=== PATIENT | male | born 1940 | race Caucasian/White ===

== ENCOUNTER 2022-03-23 09:52 | Day surgery (SDC) | payer MEDICARE, BC, SELFPAY ==
[2022-03-23] VITALS (33 sets, daily range): BP systolic 108–186; BP diastolic 26–131; PULSE 46–98; RESP 14–18; TEMP 35.5–36.7; O2SAT 94–98; BMI 71.4
[2022-03-23] MEDS: OXYCODONE (CR) 10 MG TAB.ER.12H PO (10:23)
[2022-03-23] MEDS: ACETAMINOPHEN 500 MG TABLET 1000 MG PO ×2 (10:23→18:32)
[2022-03-23] MEDS: MIDAZOLAM HCL 1 MG/ML inj IVP (10:23)
[2022-03-23] MEDS: fentaNYL 100 MCG/2 ML inj IVP (10:23)
[2022-03-23] MEDS: CELECOXIB 200 MG CAPSULE PO ×2 (10:23→20:31)
[2022-03-23] MEDS: LACTATED RINGERS 1000 ML 1,000 ML 100 ML IV (10:30)
--- NOTE | 2022-03-23 11:48 | CRLHL7_ITS ---
For Patients: As a result of the Cures Act, medical imaging exams and procedure reports are released immediately into your electronic medical record. You may view this report before your referring provider. If you have questions, please contact your health care provider. Indication: POST OP TKA Technique: Two views right knee Findings/Impression: Hardware from a right total knee arthroplasty is in satisfactory position. Bone alignment is normal. No sign of acute fracture. Postop changes are within normal limits. Dictated by Kurt Harmon MD @ 03/24/2022 8:31:04 AM (Electronically Signed)
--- NOTE | 2022-03-23 12:32 | P.NB_ITS ---
Nerve Block Nerve Block Time Seen by Provider: 12:32 Date Seen: 03/23/22 Type of block requested by surgeon for post-operative analgesia: geniculars Side: right Time out performed: Yes Verification of patient name: Yes Verification of date of : Yes Site marking: site marked Name of person performing procedure: Juancarlos Continuous monitoring Was continuous monitoring of O2 sat, B/P, phototypesetting equipment monitor, recorded every 15 minutes?: Yes Procedure Checklist: sterile prep, needles and gloves Medications given in 5ml increments after negative aspiration: Marcaine %: 0.5 mL: 10 Needle gauge: 25 Patient tolerated procedure well: Yes Block Charges Block Charge (with Pro Fee): Genicular Nerve Block Use of Ultrasound Machine for Block: No
--- NOTE | 2022-03-23 12:32 | W.PM.NB ---
Nerve Block Nerve Block Time Seen by Provider: 12:32 Date Seen: 03/23/22 Type of block requested by surgeon for post-operative analgesia: adductor canal Side: right Time out performed: Yes Verification of patient name: Yes Verification of date of : Yes Site marking: site marked Name of person performing procedure: Juancarlos Continuous monitoring Was continuous monitoring of O2 sat, B/P, monitoring and evaluation advisor, recorded every 15 minutes?: Yes Procedure Checklist: sterile prep, needles and gloves Ultrasound guided. Images saved: Yes Medications given in 5ml increments after negative aspiration: Marcaine %: 0.5 mL: 20 Needle gauge: 20 Decadron (mg): 10 Precedex (mcg): 25 Patient tolerated procedure well: Yes Additional comments: Needle noted adjacent to nerve Block Charges Block Charge (with Pro Fee): Femoral Nerve Use of Ultrasound Machine for Block: Yes- US Guidance/pain block
--- NOTE | 2022-03-23 12:36 | SUR.PREOP ---
TIME?OUT:?1220 PT/RN/MDA?VERIFICATION?OF?SURGICAL?SITE,?PROCEDURE,?AND?CONSENT OBTAINED?PRIOR?TO?INVASIVE?PROCEDURE. right knee
[2022-03-23] MEDS: CEFAZOLIN 2 GM INJ IVP (14:00)
--- NOTE | 2022-03-23 14:14 | W.ANESCHARGE ---
Anesthesia Charges Start Date/Time Anesthesia Start Date: 03/23/22 Anesthesia Start Time: 13:47 Stop Date/Time Anesthesia Stop Date: 03/23/22 Anesthesia Stop Time: 16:13 Summary Emergency: No Extremes of Age: Over 72-CPT 95212
--- NOTE | 2022-03-23 15:30 | PM.ORPRC ---
Procedure Note Date of procedure: 03/23/22 Procedure: PREOPERATIVE DIAGNOSIS: 1. Right knee osteoarthritis, primary, severe POSTOPERATIVE DIAGNOSIS: 1. Right knee osteoarthritis, primary, severe PROCEDURE: 1. Right total knee arthroplasty SURGEON: Robert Lin MD. FITTER'S ASSISTANT: Rob MORALES - Of note, a skilled assistant associate professor was critical for this case to aid in patient positioning, tissue retraction, limb manipulation/positioning, and closure. ANESTHESIA: Spinal anesthetic IMPLANTS: DePuy J&J all cemented TKA - Attune PS femur size 7, size 7 tibia, 5 poly spacer, 41mm patella TOURNIQUET: 5 minutes at 300 torr EBL: 200 mL COMPLICATIONS: None evident INDICATIONS: The patient is a pleasant 81-year-old male who has experienced severe right knee pain and difficulty bearing weight. Workup included x-rays which revealed severe osteoarthrosis in the knee. Given the deformity, the dysfunction, and the pain, as well as the failure of nonoperative management, recommendation was made for surgery. FINDINGS: Full-thickness chondral loss with grooving into the medial femoral condyle and medial tibia. Tricompartmental osteophytes. Loose bodies posteriorly as well. DESCRIPTION OF PROCEDURE: Following a thorough discussion of risks, benefits, and alternatives consent was obtained and the right knee was marked. The patient was brought to the operating room and placed supine on the operating table. Induction of anesthesia was undertaken. 2 g IV Ancef and 1 g tranexamic acid was administered within 1 hr of incision preoperatively. Proper time-out was performed identifying proper patient, site, procedure. The operative extremity was prepped and draped in the appropriate sterile fashion using ChloraPrep after the patient was positioned supine with all bony prominences well padded. A longitudinal, anterior, midline skin incision was made starting approximately 3cm proximal to the superior pole of the patella and advanced distal to the tibial tubercle. A median parapatellar arthrotomy was created. A medial subperiosteal sleeve was created with knife, castañeda elevator and curved osteotome. The retropatellar fatpad was resected and the synovium in the suprapatellar pouch excised to visualize the anterior femoral cortex. Femoral preparation was performed via an intramedullary guide. Step drill allowed access into the femoral canal. The distal cutting guide was placed with 5? of valgus and 10 mm cut on the distal femur. Femur was sized using a anterior referencing guide in 3? of external rotation. This found have a best fit with the sizing noted above. The 4 in 1 cutting block was then placed, and the distal femur shaped accordingly. The box cut was then created and the trial implant inserted to confirm appropriate fit. We turned our attention to the proximal tibia. Extramedullary guide was utilized for cutting with the goal of being 90 degree cut from the mechanical axis of the tibia in the varus/valgus plane utilizing tibial crest as the primary alignment. Initially a 2 mm resection was performed from the medial tibial plateau. Ultimately, balancing was achieved in both flexion and extension in both varus and valgus. The knee was able to achieve full extension as well comfortably. The patella was initially measured and found have a thickness of 26 mm. It was resected back to approximately 16 mm. It was sized to be a best fit with as noted above. This was drilled, trial placed. All trials were placed and found to have an excellent stability and balance. At this stage, trial implants were removed, the knee was thoroughly irrigated with normal saline, and the cement was mixed. After irrigation, the knee was thoroughly dried, and cement placed, with the real tibial and femoral implants placed along with the patella. Trial poly spacer was placed and confirmed to have excellent range of motion and full extension, and the real poly spacer opened and inserted. All extra cement was removed, and a 3 min Betadine soak performed. Finally, a final irrigation round with normal saline was performed. Closure performed with 0 Vicryl and #0 Stratafix for the quad tendon/retinaculum. 2-0 Vicryl for the subcutaneous and 4-0 Stratafix for subcuticular closure. Dressings were applied and the patient was awoken from anesthesia and transferred the PACU in stable condition. Of note, the tourniquet was deflated after 5 minutes as it was a venous tourniquet. We did the rest the procedure without tourniquet including thorough irrigation of the bone marrow and drying of the bone prior to cementing. A skilled assistant associate professor was critical for this case to aid in patient positioning, tissue retraction, bone exposure, limb manipulation/positioning, patient safety, and closure. PLAN: 1. Weight bear as tolerated operative extremity. 2. 23 hr perioperative antibiotics. 3. Ice. 4. PT/OT consults for ambulation assistance/mobility education. 5. Social work consult for discharge planning. 6. DVT prophylaxis with at SCDs, Jose R Hose, and aspirin twice daily.
--- NOTE | 2022-03-23 16:16 | W.ANESCHARGE ---
Anesthesia Charges Start Date/Time Anesthesia Start Date: 03/23/22 Anesthesia Start Time: 13:47 Stop Date/Time Anesthesia Stop Date: 03/23/22 Anesthesia Stop Time: 16:13 Summary Emergency: No Extremes of Age: Over 72-CPT 07491
[2022-03-23] MEDS: LACTATED RINGERS 1000 ML 1,000 ML 75 ML IV (16:54)
--- NOTE | 2022-03-23 17:25 | PM.IMCN1 ---
Date of Consult Consult date: 03/23/22 Requesting Physician: Orthopedics Primary Care Provider: Christopher Sandoval MD Consult Narrative Reason for consult: Hypertension, asthma, seasonal allergies Narrative: Martinez Arango is a 81 year old male who underwent elective right total knee arthroplasty by Dr. Allred today. He is doing well postoperatively. He notes the block is still working and he just has some tingling in that leg. He has no other complaints. Review of Systems Const: Denies: fever, chills, change in weight or night sweats Eyes: Reports: other (cataracts); Denies: change in vision ENMT: Denies: neck pain Cardio: Denies: chest pain, edema or shortness of breath with exertion Resp: Denies: shortness of breath or cough GI: Reports: other (Has normal BMs daily, had one this am); Denies: abdominal pain, nausea, vomiting or diarrhea : Denies: painful urination, urinary frequency or nighttime urination Musculo: Denies: back pain or neck pain Integ/Breast: Denies: rash Neuro: Denies: headache Endo: Denies: excessive urination PFSH PFSH Medical History (Updated 03/23/22 @ 17:30 by Michelle Heart MD) Arthritis Asthma due to environmental allergies Benign paroxysmal positional vertigo Encounter for counseling regarding advance directives (03/19/16) Hyperlipidemia Seasonal allergic rhinitis due to pollen Surgical History (Updated 03/23/22 @ 17:30 by Michelle Heart MD) 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 Mother No problems noted. Sister High blood pressure Brother Coronary artery disease Brother Stroke Other Heart attack Social History (Updated 03/23/22 @ 17:37 by Michelle Heart MD) Narrative: Full code, doesn't want long-term life support. Smoking Status: Never smoker Do you use any of these nicotine containing products: None Second hand tobacco smoke exposure: No How often do you have a drink containing alcohol: 2-4 times a month Alcohol type: beer, wine and hard liquor How many standard drinks containing alcohol do you have on a typical day: 1 or 2 How often do you have six or more drinks on one occasion: Never AUDIT-C Alcohol total score: 2 Non-prescribed substance use: denies use Caffeine: Yes (COFFEE 2 CUPS DAILY) Are you now , , , , never or living with a partner: Social isolation score (0-1 are the most socially isolated patients): 1 Meds Home Medications and Allergies Home Medications Medication Instructions Recorded Confirmed Type fluticasone propionate 50 2 spray intranasal DAILY PRN 03/02/22 03/23/22 History mcg/actuation nasal spray,suspension glucosamine 750 [id number] 1 tab PO BID 03/02/22 03/23/22 History no1 644 mg-C 30 mg-odalys 1 mg tablet (Osteo Bi-Flex Triple Strength) multivitamin 1 tab PO QDAY 03/02/22 03/23/22 History latanoprost 0.005 % eye drops 1 drp ophthalmic (eye) HS 03/03/22 03/23/22 History losartan 100 mg tablet 100 mg PO QDAY 03/03/22 03/23/22 History vit A 300 mcg-C 200 mg-E 27 1 tab PO QDAY 03/03/22 03/23/22 History mg-lutein 2 mg and minerals tablet (Ocuvite with Lutein) rosuvastatin 20 mg tablet (Crestor) 20 mg PO DAILY 03/20/22 03/23/22 History sildenafil 50 mg tablet 50 mg PO DAILY PRN 03/20/22 03/20/22 History Allergies Allergy/AdvReac Type Severity Reaction Status Date / Time Penicillin Allergy Intermediate Hives Uncoded 03/23/22 17:40 seasonal Allergy Unknown Uncoded 03/23/22 17:40 Exam Narrative: Exam Narrative: General: No acute distress. Awake alert oriented x3. Very hard of hearing, left hearing aids at home. HEENT: Normocephalic atraumatic, pupils equally round and reactive to light and accommodation. Oropharynx clear. Mucous membranes are moist. No cervical lymphadenopathy, thyromegaly or carotid bruits. No JVD. Cardiovascular: Regular rate and rhythm. No murmurs, gallops, or rubs. Chest: No increased work of breathing. Clear to auscultation bilaterally. No crackles or wheezes. Abdomen: Bowel sounds present. Soft, nondistended, nontender. No hepatosplenomegaly or masses. Extremities: Right knee bandages are clean, dry, and intact. Cooling pad is on right knee. Jose R's toes on bilaterally. No edema, no cyanosis or clubbing. Skin: No jaundice, no pallor, no rashes. Const: Vital Signs, click to edit/add: Vital Signs - 24 hr 03/23/22 10:30 03/23/22 10:59 03/23/22 12:37 Temperature 98.0 F Pulse Rate 80 64 47 L Respiratory Rate 18 18 18 Blood Pressure 186/93 H 156/87 H 154/72 H Pulse Oximetry 96 96 98 Oxygen Delivery Me thod Oxygen Flow Rate 03/23/22 12:39 03/23/22 12:45 03/23/22 12:50 Temperature Pulse Rate 47 L 46 L 46 L Respiratory Rate 18 18 18 Blood Pressure 117/73 115/60 117/64 Pulse Oximetry 97 97 97 Oxygen Delivery Me thod Oxygen Flow Rate 03/23/22 12:55 03/23/22 13:00 03/23/22 13:05 Temperature Pulse Rate 46 L 46 L 48 L Respiratory Rate 18 18 18 Blood Pressure 116/66 110/66 116/66 Pulse Oximetry 98 98 98 Oxygen Delivery Me thod Oxygen Flow Rate 03/23/22 13:10 03/23/22 13:15 03/23/22 13:27 Temperature Pulse Rate 48 L 47 L 50 L Respiratory Rate 18 18 18 Blood Pressure 119/69 118/68 119/72 Pulse Oximetry 98 98 98 Oxygen Delivery Me thod Oxygen Flow Rate 03/23/22 13:30 03/23/22 16:10 03/23/22 16:15 Temperature 96.7 F L Pulse Rate 50 L 56 L 56 L Respiratory Rate 18 14 16 Blood Pressure 121/73 118/79 108/83 Pulse Oximetry 98 98 Oxygen Delivery Me thod Nasal Cannula Nasal Cannula Oxygen Flow Rate 3 3 03/23/22 16:20 03/23/22 16:25 03/23/22 16:30 Temperature Pulse Rate 58 L 61 60 Respiratory Rate 16 16 16 Blood Pressure 134/84 135/78 135/76 Pulse Oximetry 97 95 95 Oxygen Delivery Me thod Nasal Cannula Room Air Room Air Oxygen Flow Rate 3 03/23/22 16:36 Temperature 96.4 F L Pulse Rate 62 Respiratory Rate 16 Blood Pressure 141/80 H Pulse Oximetry 95 Oxygen Delivery Me thod Room Air Oxygen Flow Rate Documenting provider has reviewed patient's vital signs: yes (Intraoperative bradycardia noted) Assessment and Plan Assessment and plan (1) Status post total right knee replacement: Status: Acute Assessment and Plan: Cares per ortho. Pain well controlled. VTE prophylaxis with twice a day aspirin for 6 weeks, TEDS and SCDS in the hospital. (2) Hypertension: Status: Acute Assessment and Plan: Hold losartan since BPs tend to be low day 1 s/p TKAs.
--- NOTE | 2022-03-23 19:46 | PC.NURSE ---
shift [id number] pt arrived to unit at 1645 post right TKA. Cooperative and cheerful. O2 95% on RA, tolerating ice chips and advanced to soft food for dinner. Right knee shows no redness, no edema, and dressing clean dry and intact. Able to wiggle toes and lift legs. Denies chest pain. pain 2/10, see eMAR.
[2022-03-23] MEDS: CEFAZOLIN 2 GM in 0.9 % SODIUM CHLORIDE Mini-bag 100 ML IVPB (20:21)
[2022-03-23] MEDS: SENNOSIDES 1 TAB TABLET 2 TAB PO (20:31)
[2022-03-23] MEDS: ASPIRIN 81 MG TABLET EC PO (20:31)
[2022-03-23] MEDS: OXYCODONE 5 MG TABLET PO (21:57)
--- NOTE | 2022-03-23 22:26 | PC.NURSE ---
Shift Note 19-23: Pt pleasant and cooperative, BP elevated post-op as well as bradycardia. Pt has sensation in his right leg and foot, pain has been controlled with scheduled Tylenol, Celebrex and Oxycodone. See eMAR for medication administration. PIV is patent and asymptomatic with LR running. Pt has been up to BR with the urge to void but was unable to void, will continue to monitor. Cryocuff is in place, dressing is CDI. Pt is tolerating a regular diet, denies nausea
[2022-03-24] MEDS: ACETAMINOPHEN 500 MG TABLET 1000 MG PO ×2 (01:46→08:50)
[2022-03-24 03:44] VITALS: BP 135/78; PULSE 50; RESP 18; TEMP 36.7; O2SAT 96
[2022-03-24] MEDS: CEFAZOLIN 2 GM in 0.9 % SODIUM CHLORIDE Mini-bag 100 ML IVPB ×2 (03:52→11:14)
[2022-03-24] MEDS: LACTATED RINGERS 1000 ML 1,000 ML 75 ML IV (03:52)
[2022-03-24 03:55] VITALS: TEMP 36.3
--- NOTE | 2022-03-24 06:07 | PC.NURSE ---
End of shift. pt has been pleasant. right knee pain 1 -2 in bed and 4 when up. he did not want pain meds pain meds where offered. HR is bradycardia, pt said that is normal for him. has a family history of heart problems. he is drinking and voiding/ offered food last night and he declined. rachel Tylenol was given. bladder scan was 391 at the start of the shift and he voided 600 since then. right knee dressing is C/D/I/ cryo cuff is on ice was change @ 0530. teds off and plexi are off. IV is patent. he is a fall risk and bed and chair alarms are on. he is using the call light. he moves very good with a walker GB and sba
[2022-03-24 07:00] VITALS: BP 159/72; PULSE 58; RESP 18; TEMP 36.6; O2SAT 95
[2022-03-24 07:14] LABS: Basophils Percent Auto 0.1 % (0.0-3.0); Hematocrit 37.7 % (37.0-53.0); Hemoglobin* 12.8 gm/dL (13.5-17.5); Immature Granulocytes Abs Auto 0.02 K/uL (0.00-0.30); Lymphocytes Percent Auto 4.9 % (20-44); Mean Corpuscular HGB Conc 34 gm/dL (32-36); Mean Corpuscular Hemoglobin 31 pg (26-34); Mean Corpuscular Volume 92 fL (80-100); Monocytes Percent Auto 8.3 % (0.0-11.0); Neutrophils Percent Auto 86.6 % (42.0-72.0); Platelet Count* 236 K/uL (140-440); RDW Coefficient of Variation % 12.7 % (11.5-15.5); Red Blood Count 4.11 m/uL (4.30-5.90); White Blood Count* 15.58 K/uL (4.50-11.00)
[2022-03-24 07:28] LABS: Potassium* 4.5 mmol/L (3.6-5.1); Sodium* 136 mmol/L (135-149)
[2022-03-24 07:31] LABS: Creatinine* 1.1 mg/dL (0.5-1.5); Est. Creatinine Clearance* 52.68; Estimated Glomerular Filt Rate 68 ml/min
[2022-03-24 07:32] LABS: Blood Urea Nitrogen* 22 mg/dL (7-30)
[2022-03-24 08:19] LABS: Slide Review Reflex No
[2022-03-24] MEDS: ROSUVASTATIN CALCIUM 10 MG TABLET 20 MG PO (08:50)
[2022-03-24] MEDS: ASPIRIN 81 MG TABLET EC PO (08:50)
[2022-03-24] MEDS: MULTIVITAMIN/MINERALS 1 TABLET 1 TAB PO (08:50)
[2022-03-24] MEDS: CELECOXIB 200 MG CAPSULE PO (08:53)
[2022-03-24 11:00] VITALS: BP 126/65; PULSE 61; RESP 20; TEMP 36.6; O2SAT 95
--- NOTE | 2022-03-24 11:09 | PM.DS1 ---
DS: Providers Provider Date Seen: 03/24/22 Primary care physician: Christopher Sandoval MD Consults: 03/23/22 16:37 Consult to Occupational Therapy [CONS] Routine Comment: Reason(s) for OT Consult:: ADLs Prior to Discharge Any Restrictions?:: See Comment Comment: See nursing activity order for any restrictions. Consult to Physical Therapy [CONS] Routine Comment: Ambulate in the [place]ina today. Reason(s) for PT Consult:: TKA TX Protocol POD#0 Any Restrictions?:: See Comment Comment: See nursing activity order for any restrictions. Consult to Physician [CONS] Routine Comment: Consulting Provider: Hospitalists Has provider been notified: No Consult to Manager Group [CONS] Routine Comment: Reason for Consult:: Discharge Planning Needs Attending Physician on discharge: Robert Lin MD Date of Discharge: 03/24/22 DS: Diagnosis Discharge Diagnosis (1) Status post total right knee replacement: Status: Acute (2) Hypertension: Status: Acute (3) Osteoarthritis of right knee: Status: Acute Problem details: Right knee osteoarthrosis, severe DS: Summary Hospital Course Hospital Course: 81-year-old male admitted to the hospital for right total knee arthroplasty. Procedures performed on the day of admission by Dr. Lin. There were no complications. Postoperatively he has done quite well. Minimal pain. Ambulating well. No other concerns today. Status at Discharge Functional status at discharge: uses cane/walker Overall status at discharge: patient is back to baseline Time Spent with Patient Time attestation: Total time spent providing and/or coordinating discharge services: Time spent: Less than 30 minutes Exam Narrative: Exam Narrative: He is alert and appears in no distress. Breathing is unlabored. Mood and affect are bright. Lower extremities without edema. Incision without erythema or drainage. Intact pulses and strength in feet and ankles. Const: Vital Signs, click to edit/add: Vital Signs - 24 hr 03/23/22 12:37 03/23/22 12:39 03/23/22 12:45 Temperature Pulse Rate 47 L 47 L 46 L Pulse Rate [Pulse Oximeter] Respiratory Rate 18 18 18 Blood Pressure 154/72 H 117/73 115/60 Blood Pressure [Le ft Arm] Pulse Oximetry 98 97 97 Oxygen Delivery Me thod Oxygen Flow Rate 03/23/22 12:50 03/23/22 12:55 03/23/22 13:00 Temperature Pulse Rate 46 L 46 L 46 L Pulse Rate [Pulse Oximeter] Respiratory Rate 18 18 18 Blood Pressure 117/64 116/66 110/66 Blood Pressure [Le ft Arm] Pulse Oximetry 97 98 98 Oxygen Delivery Me thod Oxygen Flow Rate 03/23/22 13:05 03/23/22 13:10 03/23/22 13:15 Temperature Pulse Rate 48 L 48 L 47 L Pulse Rate [Pulse Oximeter] Respiratory Rate 18 18 18 Blood Pressure 116/66 119/69 118/68 Blood Pressure [Le ft Arm] Pulse Oximetry 98 98 98 Oxygen Delivery Me thod Oxygen Flow Rate 03/23/22 13:27 03/23/22 13:30 03/23/22 16:10 Temperature 96.7 F L Pulse Rate 50 L 50 L 56 L Pulse Rate [Pulse Oximeter] Respiratory Rate 18 18 14 Blood Pressure 119/72 121/73 118/79 Blood Pressure [Le ft Arm] Pulse Oximetry 98 98 Oxygen Delivery Me thod Nasal Cannula Oxygen Flow Rate 3 03/23/22 16:15 03/23/22 16:20 03/23/22 16:25 Temperature Pulse Rate 56 L 58 L 61 Pulse Rate [Pulse Oximeter] Respiratory Rate 16 16 16 Blood Pressure 108/83 134/84 135/78 Blood Pressure [Le ft Arm] Pulse Oximetry 98 97 95 Oxygen Delivery Me thod Nasal Cannula Nasal Cannula Room Air Oxygen Flow Rate 3 3 03/23/22 16:30 03/23/22 16:36 03/23/22 17:21 Temperature 96.4 F L Pulse Rate 60 62 Pulse Rate [Pulse Oximeter] Respiratory Rate 16 16 16 Blood Pressure 135/76 141/80 H Blood Pressure [Le ft Arm] Pulse Oximetry 95 95 95 Oxygen Delivery Me thod Room Air Room Air Room Air Oxygen Flow Rate 03/23/22 16:45 03/23/22 17:00 03/23/22 17:15 Temperature 97 F L 96.9 F L 96.9 F L Pulse Rate 61 Pulse Rate [Pulse Oximeter] 49 L 98 Respiratory Rate 16 16 16 Blood Pressure Blood Pressure [Le ft Arm] 148/84 H 142/26 H 121/80 Pulse Oximetry 96 97 Oxygen Delivery Me thod Room Air Room Air Room Air Oxygen Flow Rate 03/23/22 17:30 03/23/22 17:45 03/23/22 18:00 Temperature 96.9 F L 96 F L Pulse Rate Pulse Rate [Pulse Oximeter] 97 62 49 L Respiratory Rate 16 16 16 Blood Pressure Blood Pressure [Le ft Arm] 140/98 H 153/131 H 159/83 H Pulse Oximetry 97 96 96 Oxygen Delivery Me thod Room Air Room Air Room Air Oxygen Flow Rate 0 03/23/22 18:30 03/23/22 19:00 03/23/22 20:00 Temperature 96.9 F L 97.6 F Pulse Rate Pulse Rate [Pulse Oximeter] 54 L 46 L 57 L Respiratory Rate 16 16 16 Blood Pressure Blood Pressure [Le ft Arm] 153/84 H 158/81 H 155/69 H Pulse Oximetry 96 95 94 Oxygen Delivery Me thod Room Air Room Air Room Air Oxygen Flow Rate 0 0 03/23/22 21:00 03/23/22 22:00 03/23/22 23:30 Temperature 97.6 F Pulse Rate Pulse Rate [Pulse Oximeter] 59 L 60 55 L Respiratory Rate 16 16 16 Blood Pressure Blood Pressure [Le ft Arm] 146/79 H 163/77 H 156/81 H Pulse Oximetry 96 98 96 Oxygen Delivery Me thod Room Air Room Air Room Air Oxygen Flow Rate 0 0 0 03/23/22 23:35 03/24/22 03:44 03/24/22 03:55 Temperature 98.1 F 97.4 F L Pulse Rate Pulse Rate [Pulse Oximeter] 55 L 50 L Respiratory Rate 18 18 Blood Pressure Blood Pressure [Le ft Arm] 135/78 Pulse Oximetry 96 Oxygen Delivery Me thod Room Air Oxygen Flow Rate 0 03/24/22 07:00 Temperature 97.8 F Pulse Rate Pulse Rate [Pulse Oximeter] 58 L Respiratory Rate 18 Blood Pressure Blood Pressure [Le ft Arm] 159/72 H Pulse Oximetry 95 Oxygen Delivery Me thod Room Air Oxygen Flow Rate Documenting provider has reviewed patient's vital signs: yes DS: Data Data Completed and Pending Labs on day of discharge: Labs from last 24 hours 03/24/22 03/24/22 06:30 06:30 WBC 15.58 H RBC 4.11 L Hgb 12.8 L Hct 37.7 MCV 92 MCH 31 MCHC 34 RDW Coeff of Susan 12.7 Plt Count 236 Neut % (Auto) 86.6 H Lymph % (Auto) 4.9 L [place] % (Auto) 8.3 Eos % (Auto) 0.0 Baso % (Auto) 0.1 Neut # (Auto) 13.50 H Lymph # (Auto) 0.80 L [place] # (Auto) 1.30 H Eos # (Auto) 0.00 Baso # (Auto) 0.00 Abs Immat Gran (auto) 0.02 Sodium 136 Potassium 4.5 BUN 22 Creatinine 1.1 Estimated Creat Clear 52.68 Estimated GFR 68 Discharge Plan Discharge Disposition: Home, Self-Care Discharging Surgeon: Robert Lin Follow-Up Appointment: Follow-up with Dr. Lin and Orthopedic Clinic as scheduled Prescriptions: New acetaminophen 500 mg capsule 500 - 1,000 mg PO Q6H MDD 4000mg PRNQty: 100 0RF celecoxib 200 mg capsule 200 mg PO BID Qty: 60 0RF oxycodone 5 mg tablet 2.5 - 5 mg PO Q4-6H MDD 6 PRN (Reason: pain) Qty: 42 0RF Rx Instructions: Take as needed for postop pain: 2.5mg mild pain, 5mg moderate-severe pain; wean as tolerated. sennosides-docusate sodium [Senna-S] 8.6-50 mg tablet 1 - 4 tab-cap PO BID PRN (Reason: constipation) Qty: 60 0RF Rx Instructions: Hold medication if experiencing loose stools. aspirin 81 mg tablet,delayed release (DR/EC) 81 mg PO BID Qty: 60 0RF Rx Instructions: Medication to help prevent blood clots postoperatively; take TWICE daily. Continued fluticasone propionate 50 mcg/actuation spray,suspension 2 spray intranasal DAILY PRN multivitamin Tablet 1 tab PO QDAY Osteo Bi-Flex Triple Strength 750 mg-644 mg- 30 mg-1 mg tablet 1 tab PO BID losartan 100 mg tablet 100 mg PO QDAY latanoprost 0.005 % drops 1 drp ophthalmic (eye) HS Label Comments: INSTILL 1 DROP IN BOTH EYES EVERY NIGHT AT BEDTIME Ocuvite with Lutein 300 mcg-200 mg-27 mg-2 mg tablet 1 tab PO QDAY Rx Instructions: administer after a meal rosuvastatin [Crestor] 20 mg tablet 20 mg PO DAILY sildenafil 50 mg tablet 50 mg PO DAILY PRN Rx Instructions: administer 30 minutes to 4 hours before activity Activity Level: Activity as Tolerated, Weight Bearing as Tolerated, Use Cane and Use Walker Activity Detail: Wound: ?Do not remove original dressing; we will remove this at first postop visit in 1 week. Only remove dressing if integrity is in question. ?No immersing wound in water; showering okay; light scrub with your hand and body soap, rinse, dab dry ?Sutures are under the skin, will dissolve; allow surgical glue to come off naturally; do not scrub the wound or apply ointments/lotions ?Call our office with any redness that streaks, excessive drainage from the wound, or wound gapping. Ice/Elevate: ?Ice as needed for swelling and discomfort (cryocuff or ice pack); elevate frequently above the heart PRICILA socks: ?Wear for 1 month, remove for 1 hour 3 times per day ?These are frustrating to take on/off, but are important for blood clot prevention for 1 month after surgery Blood Clot Prevention (DVT): ?Medication: 81 mg aspirin by mouth twice daily Driving: ?Do not drive while taking narcotic pain medication ?Anticipate 4-6 weeks no driving if operative leg is driving leg Dental: ?No elective dental work for 6 months post-op. If there is an urgent/emergent dental need, contact our office for an antibiotic prescription. Smoking/Alcohol: ?Do not smoke; do no drink alcohol especially when taking postoperative oral narcotic medication Seek Care from you Primary Care Provider if you experience the following issues in the postoperative phase and beyond: ?Bacterial infections such as: pneumonia, bacterial skin infection (cellulitis), UTI, high fever, chills unrelated to the operative body part - call your primary care physician urgently for treatment in hopes to protect your health and the metal implant. Referrals: ?PT, OT per patient preference - evaluate treat total right knee arthroplasty protocol (the training, ROM, ADLs, knee-high Pricila socks) Follow up: ?Ortho surgeon follow-up in 6 weeks; repeat radiographs three views right knee ?PA-C visit in 1 week *If there are any acute concerns regarding your surgery, please call our orthopedic clinic ([phone]) Discharge Diet: Regular Patient Instructions: Surgical Site Infections (DC) Forms: Work/Release Restrictions Follow-up: Christopher Sandoval MD [Primary Care Provider] - Discharge Orders: Discharge Order (Routine); Ordered 03/24/22 Ordered By: Thee Segovia
[2022-03-24] MEDS: SENNOSIDES 1 TAB TABLET 2 TAB PO (11:34)
--- NOTE | 2022-03-24 13:56 | PC.NURSE ---
Patient evaluated by Thee NOVAK, Dr. Toure, PT, OT and myself this morning. No dysphagia with scheduled medications. Pt 0 out of 10 with scheduled tylenol and celebrex. Pt, spouse Adri and son Noel verbalized understanding of d/c diagnosis, home meds, new prescriptions, pain management plan, f/up appt. and symptoms to report urgently to physician. Teaching on sx of infection and wound care completed. Discharged via w/c to own home with son & @ [phone].
--- NOTE | 2022-03-24 19:35 | PM.ORPN ---
Subjective Subjective Date Seen: 03/24/22 Principal diagnosis: Status postop day 1, right total knee arthroplasty Interval history: Patient reports doing well. No acute events over night. Initially some issues with voiding, but this self corrected. No catheter needed. Pain managed with scheduled /PRN medications and ice. DVT prophylaxis 81 mg aspirin by mouth twice daily, bilateral knee high Jose R stockings, and SCDs.. Denies fevers, chills, aches, N/V, CP, SOB/RAUSCH, tachycardia, or lightheadedness. He feels quite well without much for pain medication. Ortho Exam Narrative Exam Narrative: -Patient appears comfortable in recliner; no apparent acute distress -Alert and oriented times 3 -Operative knee swollen; soft tissues supple; no obvious erythema. Ecchymosis minimal. Warmth appropriate -Surgical dressing clean, dry, intact; no obvious drainage, no erythematous streaking peripheral to the bandage -bilateral calves soft, nontender; no significant swelling, edema, tenderness, erythema, discoloration, warmth, or palpable cords -2+ DP/PT pulses, intact dermatomes and myotomes distally (5/5 strength) Const Vital Signs, click to edit/add: Vital Signs - 24 hr 03/23/22 20:00 03/23/22 21:00 03/23/22 22:00 Temperature Pulse Rate [Pulse Oximeter] 57 L 59 L 60 Respiratory Rate 16 16 16 Blood Pressure [Left Arm] 155/69 H 146/79 H 163/77 H Pulse Oximetry 94 96 98 Oxygen Delivery Method Room Air Room Air Room Air Oxygen Flow Rate 0 0 0 03/23/22 23:30 03/23/22 23:35 03/24/22 03:44 Temperature 97.6 F 98.1 F Pulse Rate [Pulse Oximeter] 55 L 55 L 50 L Respiratory Rate 16 18 18 Blood Pressure [Left Arm] 156/81 H 135/78 Pulse Oximetry 96 96 Oxygen Delivery Method Room Air Room Air Oxygen Flow Rate 0 0 03/24/22 03:55 03/24/22 07:00 03/24/22 11:00 Temperature 97.4 F L 97.8 F 98 F Pulse Rate [Pulse Oximeter] 58 L 61 Respiratory Rate 18 20 Blood Pressure [Left Arm] 159/72 H 126/65 Pulse Oximetry 95 95 Oxygen Delivery Method Room Air Room Air Oxygen Flow Rate Assessment and Plan Assessment and plan (1) Status post total right knee replacement: Problem details: Pod 1 right total knee arthroplasty Status: Acute (2) Hypertension: Status: Acute (3) Osteoarthritis of right knee: Problem details: Right knee osteoarthrosis, severe Status: Acute Plan - Complete 23 hour perioperative antibiotics. - PT/OT consult for education and assistance. - Social work consult for discharge planning - Prescribed analgesics as needed - DVT prophylaxis: 81 mg aspirin by mouth twice daily, bilateral knee high Jose R Hose stockings and SCDs - Anticipation is for discharge to home with family 03/24/2022 if the patient remains medically stable, pain is controlled, and they are safe with mobilization.
--- NOTE | 2022-03-24 19:37 | PM.DS1 ---
DS: Providers Provider Date Seen: 03/24/22 Date of admission: Med surg recovery Primary care physician: Christopher Sandoval MD Consults: 03/23/22 16:37 Consult to Occupational Therapy [CONS] Routine Comment: Reason(s) for OT Consult:: ADLs Prior to Discharge Any Restrictions?:: See Comment Comment: See nursing activity order for any restrictions. Consult to Physical Therapy [CONS] Routine Comment: Ambulate in the [place] today. Reason(s) for PT Consult:: TKA [place] Protocol POD#0 Any Restrictions?:: See Comment Comment: See nursing activity order for any restrictions. Consult to Physician [CONS] Routine Comment: Consulting Provider: Hospitalists Has provider been notified: No Consult to Sales[employer] [CONS] Routine Comment: Reason for Consult:: Discharge Planning Needs Attending Physician on discharge: Robert Lin MD Date of Discharge: 03/24/22 DS: Diagnosis Discharge Diagnosis (1) Status post total right knee replacement: Status: Acute Problem details: Pod 1 right total knee arthroplasty DS: Summary Hospital Course Hospital Course: 81-year-old male admitted to the hospital for right total knee arthroplasty. Procedures performed on the day of admission by Dr. Lin. There were no complications. Postoperatively he has done quite well. Minimal pain. Ambulating well. No other concerns today. The patient has a history of right knee osteoarthritis, primary, severe. After appropriate preoperative evaluation, the patient underwent right total knee arthroplasty. Postoperatively, the patient was given anticoagulation for deep vein thrombosis prophylaxis. The patient was progressed to Physical Therapy and was felt ready for discharge. Status at Discharge Functional status at discharge: uses cane/walker Overall status at discharge: patient is progressing back to baseline Time Spent with Patient Time attestation: Total time spent providing and/or coordinating discharge services: Time spent: Less than 30 minutes Exam Const: Vital Signs, click to edit/add: Vital Signs - 24 hr 03/23/22 20:00 03/23/22 21:00 03/23/22 22:00 Temperature Pulse Rate [Pulse Oximeter] 57 L 59 L 60 Respiratory Rate 16 16 16 Blood Pressure [Le ft Arm] 155/69 H 146/79 H 163/77 H Pulse Oximetry 94 96 98 Oxygen Delivery Me thod Room Air Room Air Room Air Oxygen Flow Rate 0 0 0 03/23/22 23:30 03/23/22 23:35 03/24/22 03:44 Temperature 97.6 F 98.1 F Pulse Rate [Pulse Oximeter] 55 L 55 L 50 L Respiratory Rate 16 18 18 Blood Pressure [Le ft Arm] 156/81 H 135/78 Pulse Oximetry 96 96 Oxygen Delivery Me thod Room Air Room Air Oxygen Flow Rate 0 0 03/24/22 03:55 03/24/22 07:00 03/24/22 11:00 Temperature 97.4 F L 97.8 F 98 F Pulse Rate [Pulse Oximeter] 58 L 61 Respiratory Rate 18 20 Blood Pressure [Le ft Arm] 159/72 H 126/65 Pulse Oximetry 95 95 Oxygen Delivery Me thod Room Air Room Air Oxygen Flow Rate DS: Data Data Completed and Pending Labs on day of discharge: Labs from last 24 hours 03/24/22 03/24/22 06:30 06:30 WBC 15.58 H RBC 4.11 L Hgb 12.8 L Hct 37.7 MCV 92 MCH 31 MCHC 34 RDW Coeff of Susan 12.7 Plt Count 236 Neut % (Auto) 86.6 H Lymph % (Auto) 4.9 L [place] % (Auto) 8.3 Eos % (Auto) 0.0 Baso % (Auto) 0.1 Neut # (Auto) 13.50 H Lymph # (Auto) 0.80 L [place] # (Auto) 1.30 H Eos # (Auto) 0.00 Baso # (Auto) 0.00 Abs Immat Gran (auto) 0.02 Sodium 136 Potassium 4.5 BUN 22 Creatinine 1.1 Estimated Creat Clear 52.68 Estimated GFR 68 Discharge Plan Discharge Disposition: Home, Self-Care Discharging Surgeon: Robert Lin Follow-Up Appointment: Follow-up with Dr. Lin and Orthopedic Clinic as scheduled Prescriptions: New acetaminophen 500 mg capsule 500 - 1,000 mg PO Q6H MDD 4000mg PRNQty: 100 0RF celecoxib 200 mg capsule 200 mg PO BID Qty: 60 0RF oxycodone 5 mg tablet 2.5 - 5 mg PO Q4-6H MDD 6 PRN (Reason: pain) Qty: 42 0RF Rx Instructions: Take as needed for postop pain: 2.5mg mild pain, 5mg moderate-severe pain; wean as tolerated. sennosides-docusate sodium [Senna-S] 8.6-50 mg tablet 1 - 4 tab-cap PO BID PRN (Reason: constipation) Qty: 60 0RF Rx Instructions: Hold medication if experiencing loose stools. aspirin 81 mg tablet,delayed release (DR/EC) 81 mg PO BID Qty: 60 0RF Rx Instructions: Medication to help prevent blood clots postoperatively; take TWICE daily. Continued fluticasone propionate 50 mcg/actuation spray,suspension 2 spray intranasal DAILY PRN multivitamin Tablet 1 tab PO QDAY Osteo Bi-Flex Triple Strength 750 mg-644 mg- 30 mg-1 mg tablet 1 tab PO BID losartan 100 mg tablet 100 mg PO QDAY latanoprost 0.005 % drops 1 drp ophthalmic (eye) HS Label Comments: INSTILL 1 DROP IN BOTH EYES EVERY NIGHT AT BEDTIME Ocuvite with Lutein 300 mcg-200 mg-27 mg-2 mg tablet 1 tab PO QDAY Rx Instructions: administer after a meal rosuvastatin [Crestor] 20 mg tablet 20 mg PO DAILY sildenafil 50 mg tablet 50 mg PO DAILY PRN Rx Instructions: administer 30 minutes to 4 hours before activity Activity Level: Activity as Tolerated, Weight Bearing as Tolerated, Use Cane and Use Walker Activity Detail: Wound: ?Do not remove original dressing; we will remove this at first postop visit in 1 week. Only remove dressing if integrity is in question. ?No immersing wound in water; showering okay; light scrub with your hand and body soap, rinse, dab dry ?Sutures are under the skin, will dissolve; allow surgical glue to come off naturally; do not scrub the wound or apply ointments/lotions ?Call our office with any redness that streaks, excessive drainage from the wound, or wound gapping. Ice/Elevate: ?Ice as needed for swelling and discomfort (cryocuff or ice pack); elevate frequently above the heart PRICILA socks: ?Wear for 1 month, remove for 1 hour 3 times per day ?These are frustrating to take on/off, but are important for blood clot prevention for 1 month after surgery Blood Clot Prevention (DVT): ?Medication: 81 mg aspirin by mouth twice daily Driving: ?Do not drive while taking narcotic pain medication ?Anticipate 4-6 weeks no driving if operative leg is driving leg Dental: ?No elective dental work for 6 months post-op. If there is an urgent/emergent dental need, contact our office for an antibiotic prescription. Smoking/Alcohol: ?Do not smoke; do no drink alcohol especially when taking postoperative oral narcotic medication Seek Care from you Primary Care Provider if you experience the following issues in the postoperative phase and beyond: ?Bacterial infections such as: pneumonia, bacterial skin infection (cellulitis), UTI, high fever, chills unrelated to the operative body part - call your primary care physician urgently for treatment in hopes to protect your health and the metal implant. Referrals: ?PT, OT per patient preference - evaluate treat total right knee arthroplasty protocol (the training, ROM, ADLs, knee-high Pricila socks) Follow up: ?Ortho surgeon follow-up in 6 weeks; repeat radiographs three views right knee ?PA-C visit in 1 week *If there are any acute concerns regarding your surgery, please call our orthopedic clinic ([phone]) Discharge Diet: Regular Patient Instructions: Acetaminophen (By mouth) (Acetaminophen Children's, Acetaminophen..., Aspirin (By mouth) (Sudeep Extra Strength, Sudeep Aspirin Children's,..., Oxycodone, Rapid Release (By mouth) (ETH-Oxydose, Oxy IR,..., Celecoxib (By mouth) (Selebreks, eliksib), Senna (By mouth) (Sen, Senna-lax), Surgical Site Infections (DC), Knee Replacement (DC) Forms: Work/Release Restrictions Follow-up: Thee Segovia PA-C [Physician Injection Molding Operator] - 04/02/22 9:30 am (Schedule surgeon appointment at this visit.) Christopher Sandoval MD [Primary Care Provider] - (Patient is to call and schedule as needed.) Discharge Orders: Discharge Order (Routine); Ordered 03/24/22 Ordered By: Thee Segovia
== END 2022-03-24 12:35 | disposition home or self-care (01) ==
LOC: OR 09:53 → MEDSURG 19:57
PROVIDERS: PCP Family Medicine; Visit Provider Orthopaedic Surgery Sports Medicine
PROC: (CPT 27447; principal; 2022-03-23 12:00)
DX: M17.11 Unilateral primary osteoarthritis, right knee (principal); I10 Essential (primary) hypertension; J45.909 Unspecified asthma, uncomplicated
CPT/HCPCS: 27447; 01402; 36415; 51702; 51798; 64447; 64454; 73560; 76942; 82565; 84132; 84295; 84520; 85025; 97110; 97116; 97161; 97165; 99100; A9153; A9270; C1776; J0690; J1100; J2250; J2704; J3010; J3490; J7120

== ENCOUNTER 2022-04-14 23:33 | Day surgery (SDC) | payer MEDICARE, BC, SELFPAY ==
[2022-04-14 22:27] VITALS: BP 144/79; PULSE 63; RESP 18; TEMP 36.3; O2SAT 97; BMI 31.5
--- NOTE | 2022-04-14 23:06 | ED_ITS ---
HPI - General Adult General Time Seen by Provider: 23:06 Date Seen: 04/14/22 Chief complaint: Fall/Minor Trauma Stated complaint: Fall, R knee laceration Time Seen by Provider: 04/14/22 22:44 Source: patient and family Mode of arrival: ambulatory Limitations: no limitations History of Present Illness HPI narrative: 81-year-old male who comes in today with right knee injury after fall. Patient had a total knee replacement done a couple of weeks ago. Tonight tripped and fell landing on the knee. Denies any other injury. He notes that he has been able ambulate without difficulty after his fall but opened his wound and so came to the emergency department. He says he tripped, did not become lightheaded or dizzy did not pass out. Related Data Home Medications Medication Instructions Recorded Confirmed fluticasone propionate 50 2 spray intranasal DAILY PRN 03/02/22 04/14/22 mcg/actuation nasal spray,suspension glucosamine 750 [id number] 1 tab PO BID 03/02/22 04/14/22 no1 644 mg-C 30 mg-odalys 1 mg tablet (Osteo Bi-Flex Triple Strength) multivitamin 1 tab PO QDAY 03/02/22 04/14/22 latanoprost 0.005 % eye drops 1 drp ophthalmic (eye) HS 03/03/22 04/14/22 losartan 100 mg tablet 100 mg PO QDAY 03/03/22 04/14/22 vit A 300 mcg-C 200 mg-E 27 1 tab PO QDAY 03/03/22 04/14/22 mg-lutein 2 mg and minerals tablet (Ocuvite with Lutein) Previous Rx's Medication Instructions Recorded acetaminophen 500 mg capsule 500 - 1,000 mg PO Q6H PRN #100 caps 03/23/22 aspirin 81 mg tablet,delayed 81 mg PO BID #60 tabs 03/23/22 release celecoxib 200 mg capsule 200 mg PO BID #60 caps 03/23/22 oxycodone 5 mg tablet 2.5 - 5 mg PO Q4-6H PRN pain #42 03/23/22 tabs T.e.d. stockings thigh length #1 ea 04/02/22 Allergies Allergy/AdvReac Type Severity Reaction Status Date / Time Penicillin Allergy Intermediate Hives Uncoded 04/09/22 12:35 seasonal Allergy Unknown Uncoded 04/09/22 12:35 Review of Systems Status of ROS: Reports: 10 or more systems reviewed and unremarkable except as noted in History and below [facility] Medical History Arthritis Asthma due to environmental allergies Benign paroxysmal positional vertigo Encounter for counseling regarding advance directives (03/19/16) Hyperlipidemia Seasonal allergic rhinitis due to pollen Surgical History 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 Mother No problems noted. Sister High blood pressure Brother Coronary artery disease Brother Stroke Other Heart attack Social History Narrative: Full code, doesn't want long-term life support. Smoking Status: Never smoker Do you use any of these nicotine containing products: None Second hand tobacco smoke exposure: No How often do you have a drink containing alcohol: 2-4 times a month Alcohol type: beer, wine and hard liquor How many standard drinks containing alcohol do you have on a typical day: 1 or 2 How often do you have six or more drinks on one occasion: Never AUDIT-C Alcohol total score: 2 Non-prescribed substance use: denies use Caffeine: Yes (COFFEE 2 CUPS DAILY) Are you now , , , , never or living with a partner: Social isolation score (0-1 are the most socially isolated patients): 1 Exam Narrative: Exam Narrative: General: Well-developed and well-nourished, no acute distress Head: Atraumatic and normocephalic Eyes: Pupils are equal reactive, extraocular motions intact, conjunctiva clear ENT: External nose and ears are normal, posterior pharynx without erythema or exudate Neck: No midline cervical tenderness, full spontaneous range of motion the neck, trachea midline, no adenopathy Heart: Regular rate and rhythm no murmurs or thrills Lungs: Clear to auscultation bilaterally without wheezes or crackles Abdomen: Soft, nontender, nondistended with active bowel sounds Musculoskeletal: Right knee incision has been completely dehisced its entire length. No active bleeding. Neurologic: Awake, alert, and oriented x3, no gross focal neurologic deficits, cranial nerves intact as tested Psych: Mood and affect are appropriate Skin: No rashes Const: Vital Signs, click to edit/add: Vital Signs - 24 hr 04/14/22 22:27 Temperature 97.4 F L Pulse Rate [Left P ulse Oximeter] 63 Respiratory Rate 18 Blood Pressure [Ri ght Upper Arm] 144/79 H Pulse Oximetry 97 Oxygen Delivery Me thod Room Air Course Course Hospital Course: Patient seen and examined, prior records reviewed. Patient tripped and fell on his right knee, causing disease his since of the surgical wound. Plan to rep air, will discuss with Orthopedic surgery. X-rays are ordered although patient says the knee feels fine and he has been ambulatory since his injury. Reevaluation(s) Reevaluation #1: Care discussed with jameson Mcclellan. Recommends cleaning and dressing the wound, plan to go to the OR for washout and repair in the morning. Rocephin IV will be given here. Care was discussed with Dr. Will, hospitalist for admission. Time: 23:16 Vital Signs Vital signs: Initial Vital Signs Temperature 97.4 F L 04/14/22 22:27 Temperature Source Temporal Artery Scan 04/14/22 22:27 Pulse Rate 63 04/14/22 22:27 Respiratory Rate 18 04/14/22 22:27 Blood Pressure 144/79 H 04/14/22 22:27 Blood Pressure Mean 100 04/14/22 22:27 Blood Pressure Position Sitting 04/14/22 22:27 Pulse Oximetry 97 04/14/22 22:27 Oxygen Delivery Method 04/14/22 22:27 Vital Signs Temperature 97.4 F L 04/14/22 22:27 Pulse Rate 63 04/14/22 22:27 Respiratory Rate 18 04/14/22 22:27 Blood Pressure 144/79 H 04/14/22 22:27 Pulse Oximetry 97 04/14/22 22:27 Oxygen Delivery Method 04/14/22 22:27 Temperature 97.4 F L 04/14/22 22:27 Pulse Rate 63 04/14/22 22:27 Respiratory Rate 18 04/14/22 22:27 Blood Pressure 144/79 H 04/14/22 22:27 Pulse Oximetry 97 08/30/22 22:27 Oxygen Delivery Method 04/14/22 22:27 Medical Decision Making Medical Records Medical records reviewed: Yes I reviewed the patient's medical records Lab Data Lab results reviewed: Yes I reviewed the patient's lab results Discharge Plan Discharge Clinical Impression: Status post total right knee replacement, Postoperative wound dehiscence Patient Disposition: Admitted As Inpatient
--- NOTE | 2022-04-14 23:08 | CRLHL7_ITS ---
For Patients: As a result of the Cures Act, medical imaging exams and procedure reports are released immediately into your electronic medical record. You may view this report before your referring provider. If you have questions, please contact your health care provider. Indication: Fall. Recent total knee arthroplasty. Technique: Right knee 3 views. Comparison: March 23, 2022. Findings: Bones: Alignment is normal. No fractures or bone lesions. Joint spaces: Hardware from a total knee arthroplasty is in satisfactory position without evidence of loosening. Small joint effusion present. Soft tissues: Braymer view demonstrates a superficial laceration anterior to the patella. There is generalized soft tissue swelling. Dictated by Augustus Lynn MD @ 04/14/2022 11:59:58 PM (Electronically Signed)
--- NOTE | 2022-04-14 23:37 | W.PC.EDHO ---
Primary Language: Preferred Language: Orientation Status: [x] Alert & Oriented [] Slight Confusion [] Known Dx Dementia Transfers By: [x] Assist of 1 [] Assist of 2 [] Lift Description of Symptoms ED Triage Present Problem knee replacement on here. tonight tripped Description going up steps, landed on landing. thought landed on L knee, presents with split incision. head hit mesh baby gate. thought maybe landed on L shoulder as well. is on blood thinner post op ED Triage Date of Onset of 04/14/22 Symptoms Oxygen Administration Pulse Oximetry 97 Oxygen Delivery Method Room Air
--- NOTE | 2022-04-14 23:54 | PM.IMHP1 ---
Hospitalist- H&P: HPI History of Present Illness Date Seen: 04/14/22 Chief complaint: Fall, R knee laceration Narrative: ADMISSION HISTORY AND PHYSICAL - HOSPITALIST Chief Complaint: I fell going up stairs HPI: This is a 81-year-old who had a primary right knee arthroplasty approximately [address] Klein. He had an unremarkable postop course until tonight. He was going up stairs and caught his toe coming down directly on his operative knee. He split his incision wide open. He has been on aspirin b.i.d. for DVT prophylaxis. His called the neighbor and they brought him in for evaluation. No other injury. He did not hit his head. No loss of consciousness. He had not been drinking alcohol. In the ED his wound was cleaned and dressed. Hospitalist was contacted to admit for surgery tomorrow. 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 Father? No problems noted. Mother? No problems noted. Sister High blood pressureBrother Coronary artery diseaseBrother StrokeOther Heart attack Social History?(Updated 03/23/22 @ 17:37 by Michelle Heart MD) Narrative:? Full code, doesn't want long-term life support. Smoking Status:? Never smoker Do you use any of these nicotine containing products:? None Second hand tobacco smoke exposure:? No How often do you have a drink containing alcohol:? 2-4 times a month Alcohol type: beer, wine and hard liquor How many standard drinks containing alcohol do you have on a typical day:? 1 or 2 How often do you have six or more drinks on one occasion:? Never AUDIT-C Alcohol total score:? 2 Non-prescribed substance use:? denies use Caffeine:? Yes (COFFEE 2 CUPS DAILY) Are you now , , , , never or living with a partner:? Social isolation score (0-1 are the most socially isolated patients):? 1 Meds Home Medications and Allergies Home Medications ?Medication ?Instructions ?Recorded ?Confirmed ?Type fluticasone propionate 50 2 spray intranasal DAILY PRN 03/02/22 03/23/22 History mcg/actuation nasal ? spray,suspension ? glucosamine 750 [id number]-[id number] 1 tab PO BID 03/02/22 03/23/22 History no1 644 mg-C 30 mg-odalys 1 mg ? tablet (Osteo Bi-Flex Triple ? Strength) ? multivitamin 1 tab PO QDAY 03/02/22 03/23/22 History latanoprost 0.005 % eye drops 1 drp ophthalmic (eye) HS 03/03/22 03/23/22 History losartan 100 mg tablet 100 mg PO QDAY 03/03/22 03/23/22 History vit A 300 mcg-C 200 mg-E 27 1 tab PO QDAY 03/03/22 03/23/22 History mg-lutein 2 mg and minerals tablet ? (Ocuvite with Lutein) ? rosuvastatin 20 mg tablet (Crestor) 20 mg PO DAILY 03/20/22 03/23/22 History sildenafil 50 mg tablet 50 mg PO DAILY PRN 03/20/22 03/20/22 History Allergies Allergy/AdvReac Type Severity Reaction Status Date / Time Penicillin Allergy Intermediate Hives Uncoded 03/23/22 17:40 seasonal Allergy Unknown ? Uncoded 03/23/22 17:40 INVESTIGATIONS: LABS/MICRO/ECG/IMAGING 144/79 Pulse 63 Resp is 18 Afebrile O2 sat 97% on room air CBC reflects a white blood cell count of 15.5, hemoglobin 12.8, normal platelets 236 Normal BMP Right knee x-ray Hardware from a right total knee arthroplasty is in satisfactory position. Bone alignment is normal. No sign of acute fracture. Postop changes are within normal limits. REVIEW OF SYSTEMS: 12-point ROS completed with patient and negative unless otherwise stated in HPI or below. PHYSICAL EXAM: CODE STATUS: Full code CONSTITUTIONAL: No acute distress. Hard of hearing. VITAL SIGNS: see record. HEENT: Normocephalic, atraumatic. PERRL, EOMI, conjunctivae pink, no scleral icterus. Ears and nose externally normal. Pharynx normal. NECK: No JVD. No carotid bruit, no thyromegaly, no adenopathy. CHEST: Clear to auscultation bilaterally HEART: S1 and S2 normal. No harsh murmurs. Edema MUSCULOSKELETAL: Right knee has a deep dehisced surgical wound extending entire length previous surgery. The wound was not explored but apparently a an arthrotomy is suspected. NEURO: Cranial nerves intact. Grossly intact. No asymmetric findings. SKIN: No rashes, petechiae, concerning changes PSYCHIATRIC: Euthymic. ADMIT DVT: Previously been on aspirin b.i.d.. 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 Mother No problems noted. Sister High blood pressure Brother Coronary artery disease Brother Stroke Other Heart attack Social History Narrative: Full code, doesn't want long-term life support. Smoking Status: Never smoker Do you use any of these nicotine containing products: None Second hand tobacco smoke exposure: No How often do you have a drink containing alcohol: 2-4 times a month Alcohol type: beer, wine and hard liquor How many standard drinks containing alcohol do you have on a typical day: 1 or 2 How often do you have six or more drinks on one occasion: Never AUDIT-C Alcohol total score: 2 Non-prescribed substance use: denies use Caffeine: Yes (COFFEE 2 CUPS DAILY) Are you now , , , , never or living with a partner: Social isolation score (0-1 are the most socially isolated patients): 1 Meds Home Medications and Allergies Home Medications Medication Instructions Recorded Confirmed Type fluticasone propionate 50 2 spray intranasal DAILY PRN 03/02/22 04/14/22 History mcg/actuation nasal spray,suspension glucosamine 750 [id number]-alyhhzoqdzs-ygw 1 tab PO BID 03/02/22 04/14/22 History no1 644 mg-C 30 mg-odalys 1 mg tablet (Osteo Bi-Flex Triple Strength) multivitamin 1 tab PO QDAY 03/02/22 04/14/22 History latanoprost 0.005 % eye drops 1 drp ophthalmic (eye) HS 03/03/22 04/14/22 History losartan 100 mg tablet 100 mg PO QDAY 03/03/22 04/14/22 History vit A 300 mcg-C 200 mg-E 27 1 tab PO QDAY 03/03/22 04/14/22 History mg-lutein 2 mg and minerals tablet (Ocuvite with Lutein) Allergies Allergy/AdvReac Type Severity Reaction Status Date / Time Penicillin Allergy Intermediate Hives Uncoded 04/09/22 12:35 seasonal Allergy Unknown Uncoded 04/09/22 12:35 Exam Const: Vital Signs, click to edit/add: Vital Signs - 24 hr 04/14/22 22:27 Temperature 97.4 F L Pulse Rate [Left P ulse Oximeter] 63 Respiratory Rate 18 Blood Pressure [Ri ght Upper Arm] 144/79 H Pulse Oximetry 97 Oxygen Delivery Me thod Room Air Assessment and Plan Assessment and plan (1) Postoperative wound dehiscence: Status: Acute Assessment and Plan: I will make him NPO after midnight. I expect ortho will likely taken to the OR tomorrow to washout and reapproximate. We gave him 1 g of Rocephin in the ED. LR S he will be NPO. (2) Status post total right knee replacement: Problem comment: (03/23/2022) Status: Acute (3) Hypertension: Status: Acute Assessment and Plan: Continue home meds.
[2022-04-14] MEDS: cefTRIAXone 1 GM in 0.9 % SODIUM CHLORIDE Mini-bag 100 ML IVPB (23:56)
[2022-04-15] VITALS (17 sets, daily range): BP systolic 133–191; BP diastolic 73–98; PULSE 46–60; RESP 16–18; TEMP 36.3–36.9; O2SAT 90–99; BMI 30.6
--- NOTE | 2022-04-15 00:55 | ED.NURSE ---
pt knee lac cleaned, non stick bandage applied and 6 inch ken wrap applied per MD order.
[2022-04-15 00:58] LABS: SARS PCR* Negative SARS-CoV-2 (Negative)
[2022-04-15] MEDS: 0.9 % SODIUM CHLORIDE 1000 ml 1,000 ML 125 ML IV (02:15)
[2022-04-15] MEDS: BUPIVACAINE 0.5% 30 ML INJECTION (14:15)
--- NOTE | 2022-04-15 14:29 | SUR.OPER ---
Patient transported from [facility] Surg by bed to OR2. Patient was assisted to the OR table. Covered with warm blankets x2 for warmth and comfort.
--- NOTE | 2022-04-15 14:31 | PM.ORPRC ---
Procedure Note Date of procedure: 04/15/22 Procedure: PREOPERATIVE DIAGNOSIS: 1. Right knee wound traumatic dehiscence following TKA 03/23/2022 POSTOPERATIVE DIAGNOSIS: 1. Right knee wound traumatic dehiscence following TKA 03/23/2022 PROCEDURE: 1. Right knee irrigation and debridement including excisional debridement of subcutaneous tissue. 2. Right knee skin closure (including subcutaneous layer and subcuticular layer) 14 cm in length SURGEON: Robert Lin MD. EDUCATION SUPERVISOR: Thee Segovia PA-C - Of note, a skilled dental laboratory assistant was critical for this case to aid in patient positioning, tissue retraction, limb manipulation/positioning, and closure. ANESTHESIA: Mac IMPLANTS: None today TOURNIQUET: None today EBL: 50 ml COMPLICATIONS: None evident INDICATIONS: The patient is a pleasant 81-year-old male who underwent a right TKA on 03/23/2022. He was doing very good in the postoperative time. He was advancing with physical therapy. He was ambulating independently without assistive device most recently. He has been off of narcotics. Unfortunately, he tripped going up his stairs yesterday, 04/14/2022. This causing the land on the anterior aspects of each knee onto a hardwood floor surface. His left knee is doing fine, but his right knee split open the previous TKA anterior midline skin incision. He had some trouble moving due to discomfort and pain in thus he presented [facility]. The wound was found to be traumatically opened/dehisced. However, the patient was able to do straight leg raise in weightbear as tolerated. This would suggest is quad tendon was intact but it was absolutely prudent to take him to the operating room to thoroughly irrigate and debride the hematoma, evaluate the quad tendon and deep retinaculum, and closed the skin if possible. FINDINGS: His quad tendon was indeed intact. The Stratafix suture line was clearly intact. There is approximately 2 cm a Stratafix sticking out on the distal aspect of the incision which was likely the back tracked Stratafix that may have unraveled 1 or 2 times but still was clearly intact. With the blunt instrument we were unable to penetrate through the quad retinaculum clearly showing this to be intact. The subcutaneous layer did have a little pocket on both the medial and lateral aspects and minimally proximally. The proximal 4 cm of incision was still intact. The rest the skin otherwise was intact and the sutures appeared to have broken rather than pulled through the skin. DESCRIPTION OF PROCEDURE: Following a thorough discussion of risks, benefits, and alternatives consent was obtained and the right knee was marked. The patient was brought to the operating room and placed supine on the operating table. Induction of anesthesia was undertaken. 2 g IV Ancef was administered within 1 hr of incision preoperatively. Proper time-out was performed identifying proper patient, site, procedure. The operative extremity was prepped and draped in the appropriate sterile fashion using Betadine prep due to the open wound after the patient was positioned supine with all bony prominences well padded. Following this, thorough irrigation normal saline was performed. We then utilized a lap sponge to further debride in a mechanical manner both the deep surface of the subcutaneous layer and the superficial surface of the muscle/retinaculum and quad tendon region. We thoroughly inspected the quad tendon and found no rent or opening to this. A blunt instrument and digital palpation showed no injury to this structure. The suture line showed various sutures had broken at various spots but not pulled through the tissue itself for the skin. Again thorough irrigation normal saline performed including 3 L of normal saline. Then a 3 minute Betadine soak was performed. Finally, 3 more L of normal saline was thoroughly irrigated through the knee subcutaneous layer that were looking at. Closure performed with 2-0 PDS and 2-0 Stratafix for the subcutaneous and 4-0 Stratafix for subcuticular closure. Dressings were applied and the patient was awoken from anesthesia. A skilled dental laboratory assistant was critical for this case to aid in patient positioning, tissue retraction, limb manipulation/positioning, patient safety, and closure. PLAN: 1. Weight bear as tolerated operative extremity. 2. 23 hr perioperative antibiotics. 3. Ice. 4. No PT or OT consultation necessary as the patient is well-versed with these activities. 5. No social work consult needed either for the same reason. Anticipate the patient will be able to discharge to home later today. 6. DVT prophylaxis with at SCDs, Jose R Hose, and aspirin twice daily.
--- NOTE | 2022-04-15 15:23 | W.ANESCHARGE ---
Anesthesia Charges Start Date/Time Anesthesia Start Date: 04/15/22 Anesthesia Start Time: 13:19 Stop Date/Time Anesthesia Stop Date: 04/15/22 Anesthesia Stop Time: 15:12 Summary Emergency: Yes Extremes of Age: Over 72-CPT [id number]
--- NOTE | 2022-04-15 18:43 | PC.NURSE ---
Discharge-- Very pleasant and cooperative, alert and oriented patient discharged to home via wheelchair with . He returned from PACU at 1500. VSS and pt denied pain. Dressing to right knee is C/D/I. CMS WNL. LS CTA. BS+ x4 and pt denied nausea and ate a regular dinner without difficulty. He was up to the chair and BR with SBA and a walker and tolerated it very well. Discharge education was provided including diagnosis info, symptoms to report, medications and follow up plan. No further questions asked. SL was removed with tip intact.
--- NOTE | 2022-04-21 09:13 | P.DS_ITS ---
DS: Providers Provider Time Seen by Provider: 09:00 Date Seen: 04/15/22 Date of admission: 04/14/2022 Primary care physician: Christopher Sandoval MD Attending Physician on discharge: Deshawn Shin MD Date of Discharge: 04/15/22 DS: Diagnosis Discharge Diagnosis (1) Postoperative wound dehiscence: Status: Acute (2) Status post total right knee replacement: Status: Acute Problem details: (03/23/2022) (3) Osteoarthritis of right knee: Status: Acute Problem details: Right knee osteoarthrosis, severe (4) Hypertension: Status: Acute DS: Summary Hospital Course Hospital Course: Patient tripped and fell on his right knee, causing disease his since of the surgical wound. Plan to repair, will discuss with Orthopedic surgery. X-rays are ordered although patient says the knee feels fine and he has been ambulatory since his injury. This is a 81-year-old who had a primary right knee arthroplasty approximately [address] Klein.? He had an unremarkable postop course until tonight.? He was going up stairs and caught his toe coming down directly on his operative knee.? He split his incision wide open.? He has been on aspirin b.i.d. for DVT prophylaxis.? His called the neighbor and they brought him in for evaluation.? No other injury.? He did not hit his head.? No loss of consciousness.? He had not been drinking alcohol. In the ED his wound was cleaned and dressed.? Hospitalist was contacted to admit for surgery tomorrow. Plan to repair, discussed with Orthopedic surgery. X- rays are ordered although patient says the knee feels fine and he has been ambulatory since his injury. On date of discharge patient was brought to the OR per Orthopedic surgery. Wound was thoroughly cleaned, examined, and wound is closed once again. Status at Discharge Functional status at discharge: uses cane/walker Overall status at discharge: patient is progressing back to baseline Time Spent with Patient Time attestation: Total time spent providing and/or coordinating discharge services: Time spent: Less than 30 minutes Exam Narrative: Exam Narrative: CONSTITUTIONAL:? No acute distress.? Hard of hearing. VITAL SIGNS: see record.? HEENT: Normocephalic, atraumatic. PERRL, EOMI, conjunctivae pink, no scleral icterus. Ears and nose externally normal. Pharynx normal. NECK: No JVD. No carotid bruit, no thyromegaly, no adenopathy. CHEST:? Clear to auscultation bilaterally HEART: S1 and S2 normal.? No harsh murmurs. Edema MUSCULOSKELETAL:? Right knee has a dehisced surgical wound extending entire length previous surgery.? NEURO: Cranial nerves intact.? Grossly intact.? No asymmetric findings. SKIN:? No rashes, petechiae, concerning changes PSYCHIATRIC: Euthymic. Const: Documenting provider has reviewed patient's vital signs: yes Discharge Plan Discharge Disposition: Home, Self-Care Discharging Surgeon: Robert Lin Follow-Up Appointment: Per Dr. Lin Prescriptions: Continued fluticasone propionate 50 mcg/actuation spray,suspension 2 spray intranasal DAILY PRN multivitamin Tablet 1 tab PO QDAY Osteo Bi-Flex Triple Strength 750 mg-644 mg- 30 mg-1 mg tablet 1 tab PO BID losartan 100 mg tablet 100 mg PO QDAY latanoprost 0.005 % drops 1 drp ophthalmic (eye) HS Label Comments: INSTILL 1 DROP IN BOTH EYES EVERY NIGHT AT BEDTIME Ocuvite with Lutein 300 mcg-200 mg-27 mg-2 mg tablet 1 tab PO QDAY Rx Instructions: administer after a meal (DME) T.e.d. stockings thigh length Misc See Rx Instructions .Route Qty: 1 0RF Rx Instructions: As directed acetaminophen 500 mg capsule 500 - 1,000 mg PO Q6H MDD 4000mg PRNQty: 100 0RF celecoxib 200 mg capsule 200 mg PO BID Qty: 60 0RF aspirin 81 mg tablet,delayed release (DR/EC) 81 mg PO BID Qty: 60 0RF Rx Instructions: Medication to help prevent blood clots postoperatively; take TWICE daily. Activity Level: Activity as Tolerated Activity Detail: Per orders from Dr. Robert Lin Discharge Diet: Regular Patient Instructions: Deep Sedation (DC), Incision and Drainage (DC) Additional Instructions: 1. Follow-up with orthopedic surgery per their instructions Forms: [facility] Info Instructions Follow-up: Robert Lin MD [Staff Physician] - 04/24/22 9:20 am Christopher Sandoval MD [Primary Care Provider] - Discharge Orders: Discharge Order (Routine); Ordered 04/15/22 Ordered By: Dsehawn Shin
== END 2022-04-15 23:33 | disposition home or self-care (01) ==
LOC: MEDSURG 04-15 14:42 → SS 04-15 15:31 → MEDSURG 04-16 08:24
PROVIDERS: Orthopaedic Surgery Sports Medicine; PCP Family Medicine; Visit Provider Family Medicine
PROC: (CPT 11043; principal; 2022-04-15 12:45)
DX: T81.31XA Disruption of external operation (surgical) wound, not elsewhere classified, initial encounter (principal); Z96.651 Presence of right artificial knee joint; I10 Essential (primary) hypertension; W10.9XXA Fall (on) (from) unspecified stairs and steps, initial encounter; Y92.019 Unspecified place in single-family (private) house as the place of occurrence of the external cause; M17.11 Unilateral primary osteoarthritis, right knee
CPT/HCPCS: 11043; 1320; 73562; 87635; 93005; 99100; 99140; 99284; A9270; J0696; J2405; J2704; J3010; J3490; J7030

== ENCOUNTER 2022-10-13 07:07 | Outpatient (CLI) | payer MEDICARE, BC, SELFPAY ==
--- NOTE | 2022-10-13 07:15 | MR_ITS ---
[address] [address] Phone:?[phone] Fax:?[phone] Referring Physician Information: Robert Lin M.D. [address] [facility] [address] Phone:?[phone] Fax:?[phone] Patient:?Martinez Arango D.O.B:?1940 Sex:?Male Phone:?[phone] [facility] MRN:?[id number] Exam Date:?10/13/2022 ? EXAM: MRI EXAMINATION OF THE LEFT SHOULDER CLINICAL INFORMATION: Left shoulder pain. No history of surgery to this area. Concern for possible rotator cuff tear. TECHNICAL INFORMATION: Coronal STIR. Axial, sagittal and coronal PD and T2- weighted images were acquired. There are no prior studies for comparison. INTERPRETATION: Bones: There is no Hill-Sachs impaction deformity. No other occult fracture or osseous contusion. There is no other bone marrow edema pattern. Rotator Cuff: There is a complete rupture involving the entirety of the expected supraspinatus tendon insertion. Maximal tendon retraction is to the level of the glenoid. Slight increased T2 signal intensity without fatty atrophy involves the muscle belly. There is a poorly defined and high-grade appearance of tearing which involves the anterior one third of the infraspinatus tendon insertion. The teres minor tendon is intact. There is a diffuse appearance of high-grade tearing with areas of full-thickness involvement of the subscapularis tendon. No appreciable rotator cuff muscle belly atrophy. Coracoacromial arch: Abnormal elevation of the humeral head in relation to the adjacent glenoid. The bony acromiohumeral interval is measuring 2 to 3 mm. There is no thickening identified of the coracoacromial ligament. Acromioclavicular joint: There is a moderate to marked appearance of AC joint DJD. Biceps tendon: Absent visualization of the intra-articular long biceps tendon appears related to a more chronic disruption. Glenohumeral joint and labrum: There is a small to moderate glenohumeral joint effusion. Series 6 image 7 as well as series 3 image 49 demonstrate a 1.3 cm ovoid low signal intensity focus of tissue within the subscapularis recess area of the joint. There is thinning of the articular cartilage of the humeral head along side the glenohumeral joint, without evidence for full-thickness cartilage loss. No discrete SLAP tear. There is tearing identified through the superior quadrant of the posterior labrum. No discrete paralabral cyst is identified. CONCLUSION: 1. Complete supraspinatus tendon rupture. Maximal tendon retraction to the level of the glenoid. Slight increased T2 signal intensity of the muscle belly may be related to early denervation without evidence for fatty atrophy. 2. Diffuse high-grade tearing with areas of full-thickness involvement of the subscapularis tendon. No muscle belly. 3. Poorly defined and high-grade tearing involves the anterior one third of the infraspinatus tendon insertion. 4. Elevation of the humeral head with marked narrowing of the acromiohumeral. Moderate to marked AC joint DJD. 5. Chronic appearance of intra-articular long head biceps tendon disruption. 6. 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 7. There is a small to moderate glenohumeral joint effusion. A 1.3 cm ovoid low signal intensity focus of tissue within the subscapularis recess area may represent loose body. KES Electronically signed on 10/13/2022 11:07:00 AM by Noel Riddle M.D.
== END 2022-10-13 07:08 | disposition home or self-care (01) ==
LOC: MRI 07:09
PROVIDERS: PCP Family Medicine; Visit Provider Orthopaedic Surgery Sports Medicine
DX: M25.512 Pain in left shoulder (principal); M75.122 Complete rotator cuff tear or rupture of left shoulder, not specified as traumatic; S46.912A Strain of unspecified muscle, fascia and tendon at shoulder and upper arm level, left arm, initial encounter; M94.212 Chondromalacia, left shoulder; M19.012 Primary osteoarthritis, left shoulder; M25.412 Effusion, left shoulder
CPT/HCPCS: 73221

== ENCOUNTER 2022-11-19 08:51 | Outpatient (CLI) | payer MEDICARE, BC, SELFPAY ==
[2022-11-19 14:10] LABS: SARS PCR* Negative SARS-CoV-2 (Negative)
== END 2022-11-19 08:52 | disposition home or self-care (01) ==
PROVIDERS: PCP Family Medicine; Visit Provider Orthopaedic Surgery Sports Medicine
DX: Z20.822 Contact with and (suspected) exposure to COVID-19 (principal); Z11.52 Encounter for screening for COVID-19
CPT/HCPCS: 87635

== ENCOUNTER 2022-11-23 07:11 | Day surgery (SDC) | payer MEDICARE, BC, SELFPAY ==
[2022-11-23] VITALS (16 sets, daily range): BP systolic 121–154; BP diastolic 71–104; PULSE 50–83; RESP 16; TEMP 36.1–36.6; O2SAT 91–97; BMI 33.0
[2022-11-23] MEDS: EPINEPHrine 1 MG in SODIUM CHLORIDE IRRIG SOLUTION 3,000 ML 24008 MG IRRIGATION (07:20)
[2022-11-23] MEDS: SODIUM CHLORIDE 0.9 % (FLUSH) 10 ML SYRINGE IVF (08:00)
[2022-11-23] MEDS: LACTATED RINGERS 1000 ML 1,000 ML 100 ML IV (08:00)
[2022-11-23] MEDS: fentaNYL 100 MCG/2 ML inj IVP (08:35)
[2022-11-23] MEDS: MIDAZOLAM HCL 1 MG/ML inj IVP (08:35)
--- NOTE | 2022-11-23 08:38 | W.ANESCHARGE ---
Anesthesia Charges Start Date/Time Anesthesia Start Date: 11/23/22 Anesthesia Start Time: 08:53 Stop Date/Time Anesthesia Stop Date: 11/23/22 Anesthesia Stop Time: 11:53 Summary Extremes of Age - Over 70 or under 1: MDA
--- NOTE | 2022-11-23 08:40 | P.NB_ITS ---
Nerve Block Nerve Block Time Seen by Provider: 07:35 Date Seen: 11/23/22 Type of block requested by surgeon for post-operative analgesia: supraclavicular Side: left Time out performed: Yes Verification of patient name: Yes Verification of date of : Yes Site marking: site marked Name of person performing procedure: Juancarlos Continuous monitoring Was continuous monitoring of O2 sat, B/P, air sampling and monitoring, recorded every 15 minutes?: Yes Procedure Checklist: sterile prep, needles and gloves Ultrasound guided. Images saved: Yes Medications given in 5ml increments after negative aspiration: Ropivicaine %: 0.5 mL: 20 Needle gauge: 22 Decadron (mg): 10 Precedex (mcg): 25 Patient tolerated procedure well: Yes Block Charges Block Charge (with Pro Fee): Brachial Plexus Use of Ultrasound Machine for Block: Yes- US Guidance/pain block
[2022-11-23] MEDS: CEFAZOLIN 2 GM in 0.9 % SODIUM CHLORIDE Mini-bag 100 ML IVPB (09:03)
--- NOTE | 2022-11-23 09:13 | SUR.PREOP ---
TIME?OUT:?0834 PT/RN/MDA?VERIFICATION?OF?SURGICAL?SITE,?PROCEDURE,?AND?CONSENT OBTAINED?PRIOR?TO?INVASIVE?PROCEDURE.
--- NOTE | 2022-11-23 11:31 | P.ORPRC_ITS ---
Procedure Note Date of procedure: 11/23/22 Procedure: PREOPERATIVE DIAGNOSES: 1. Left shoulder rotator cuff tear full-thickness supraspinatus with significant retraction near the glenoid, as well as upper 1/2 subscapularis. 2. Left shoulder AC degenerative joint disease, primary, severe 3. Left shoulder long head biceps remote disruption with labral tearing surrounding. 4. Left shoulder loose body 5. Left shoulder subacromial impingement syndrome. POSTOPERATIVE DIAGNOSES: 1. Left shoulder rotator cuff tear full-thickness supraspinatus and anterior portion infraspinatus with significant retraction near the glenoid, as well as upper 1/2 subscapularis. 2. Left shoulder AC degenerative joint disease, primary, severe 3. Left shoulder long head biceps remote disruption with labral tearing surrounding. 4. Left shoulder subacromial impingement syndrome. NAME OF OPERATION: 1. Left shoulder arthroscopic rotator cuff repair (subscap, supra, and infra) 2. Left shoulder arthroscopic distal clavicle excision 3. Left shoulder arthroscopic extensive glenohumeral debridement 4. Left shoulder arthroscopic bursectomy, subacromial decompression/partial acromioplasty. SURGEON: Robert Lin MD FAMILY PRESERVATION CASEWORKER: Thee Segovia is seen. Of note, a skilled bindery library technical assistant was critical for this case to aide in patient positioning, suture manipulation, arm positioning, instrument positioning, and closure. ANESTHESIA: General plus preoperative supraclavicular block. EBL: Less than 20 mL IMPLANTS: Arthrex 4.75 mm BioComposite SwiveLock suture anchor (x1); 2.6 mm FiberTak RC (x1); 7.0 mm BioComposite SwiveLock suture anchor (x1); 5.5 mm BioComposite SwiveLock suture anchor (x2) COMPLICATIONS: None evident INDICATIONS: The patient is a pleasant, 82-year-old male who has experienced left shoulder pain that has been increasing in recent time. Physical exam and imaging were consistent with a rotator cuff tear. Given their findings, as well as the weakness and pain, and inadequate response to nonoperative management, recommendation was made for surgery. FINDINGS: Exam under anesthesia revealed stable shoulder with excellent range of motion. The diagnostic arthroscopy revealed grade 4 chondromalacia anterior superior humeral head with some surrounding loose chondral flaps. The Subscapularis tendon was torn full-thickness through the superior 1/2 with moderate retraction. The long head of the biceps tendon was absent from the shoulder but did have some biceps remnant at the superior glenoid tubercle. The superior rotator cuff tendon was found to be torn full-thickness through the entire supraspinatus and anterior 1/2 of the infraspinatus with retraction back to the glenoid. The labrum was degeneratively frayed in the anterior and superior aspects. No loose bodies were identified within the pouch or subscapularis recess. PROCEDURE: Following a thorough discussion of risks, benefits, and alternatives, consent was obtained and the left shoulder was marked. The patient was brought to the operating room and placed supine on the operating table. Induction of anesthesia was completed after preoperative supraclavicular block was administered in preop holding. Appropriate time out was performed identifying proper patient, site, and procedure. 2 g IV Ancef was administered within 1 hour of incision preoperatively. The left upper extremity was prepped and draped in the appropriate sterile fashion using ChloraPrep prep. This was after the patient was positioned in the beach chair with their head in neutral alignment and all bony prominences well padded. The shoulder was insufflated with 20mL of normal saline via an 18g spinal needle from a posterior approach. An 11 blade skin incision allowed a blunt trochar to be inserted and diagnostic arthroscopy to be performed with the findings as noted above. An anterior portal was established with an outside in technique. This allowed the probe to be inserted and confirm the diagnostic arthroscopic findings. The shaver was then inserted and allowed debridement of the anterior and superior labrum as well as the biceps stump and the loose chondral tissue on humeral head consistent with extensive glenohumeral debridement. Following this, the upper border subscapularis was repaired after debriding the lesser tuberosity with the shaver and [place] cautery. Subscapularis was captured in horizontal mattress fashion with a fiber tape suture. The tails were brought to a single anchor in the lesser tuberosity with excellent reapproximation of the subscap tendon and good excursion/tension. Thereafter, the subacromial space was entered. Here, a complete bursectomy and partial acromioplasty/subacromial decompression was performed with a combination of radiofrequency ablator, the shaver, and a 5.5 mm bur. Additionally, distal clavicle excision was performed with the bur. 8 mm of distal clavicle was resected based on the width of our bur. Further inspection of the supraspinatus and infraspinatus rotator cuff was performed. This identified the tear as noted above. The margins of the tear were debrided, and the greater tuberosity was debrided with a combination of the apollo cautery, shaver, and bur on reverse setting. After gentle decortication, a double row repair was utilized. Initially, we planned to place a FiberTak RC posterior medially. Unfortunately, the bone quality was poor and this did not hold. Thus, we used this anchor anteriorly. We also utilized a corkscrew suture anchor posterior medially, but this also did not hold. We had to abort that anchor and it was not implanted. Instead, we opened a 7.0 mm BioComposite SwiveLock suture anchor and finally had good holding power. The 4 tails from the anterior FiberTak RC and the posterior 7.0 SwiveLock were all passed independently creating 8 tails a sutures. These were tied, and the tails were all brought to 2 lateral row anchors. Prior to the medial anchors being tied though, margin convergence suture was placed over the anterior medial tissue as this was an L-shaped type tear ultimately. After the lateral row anchors were engaged, excellent reapproximation of the rotator cuff tissue was achieved back to the greater tuberosity with good broad footprint compression. Prior to anchor non emergency services ambulance driver removal, the eyelet sutures were tugged on for each anchor and found that the anchor had excellent stability within the bone. The shoulder was placed through range of motion and found to be stable. The rotator cuff was re-probed and found to be stable. Instruments were removed. Excess fluid was drained, closure performed with 4-0 Monocryl and Steri-Strips. Dressings were applied. Sling was applied. The patient was awoken from anesthesia and transferred to the PACU in stable condition. Synovitis was suggested as a possible loose body in subscapularis recess anteriorly, and after thorough assessment of this region and throughout the axillary pouch, no loose body was encountered. A skilled bindery library technical assistant was critical for this case to aid in patient positioning, limb positioning, skill to manipulate arthroscopic instruments and camera, suture management, patient safety, and closure. PLAN: 1. Elbow, forearm, wrist and digit range of motion of operative extremity as tolerated. 2. Encouraged ice. 3. Percocet for pain as needed. 4. Sling at all times except for ROM and showering. 5. Follow up with PA visit in 1-2 weeks for wound check. Initiate physical therapy following that visit for passive range of motion. Initiate active assisted range of motion at 5 weeks postop. May do pendulums now.
--- NOTE | 2022-11-23 11:55 | P.ANES_ITS ---
Anesthesia Charges Start Date/Time Anesthesia Start Date: 11/23/22 Anesthesia Start Time: 08:53 Stop Date/Time Anesthesia Stop Date: 11/23/22 Anesthesia Stop Time: 11:53 Summary Extremes of Age - Over 70 or under 1: CERTIFIED WELLNESS PROGRAM COORDINATOR
== END 2022-11-23 14:05 | disposition home or self-care (01) ==
PROVIDERS: PCP Family Medicine; Visit Provider Orthopaedic Surgery Sports Medicine
PROC: (CPT 29805; principal; 2022-11-23 09:00)
DX: M75.122 Complete rotator cuff tear or rupture of left shoulder, not specified as traumatic (principal); M19.012 Primary osteoarthritis, left shoulder; M75.42 Impingement syndrome of left shoulder; M24.012 Loose body in left shoulder
CPT/HCPCS: 29827; 29826; 29824; 29823; 01630; 64415; 76942; 99100; C1713; J0171; J0330; J0690; J1100; J2250; J2370; J2405; J2704; J2795; J3010; J7120; L3670

== ENCOUNTER 2023-10-29 08:35 | Outpatient (CLI) | payer MEDICARE, BC, SELFPAY ==
--- NOTE | 2023-10-29 09:15 | MR_ITS ---
[address] [address] Phone:?[phone] Fax:?[phone] Referring Physician Information: Robert Lin M.D. [address] [facility] [address] Phone:?[phone] Fax:?[phone] Patient:Yojana Arango D.O.B:?1940 Sex:?Male Phone:?[phone] [facility] MRN:?[id number] Exam Date:?10/29/2023 EXAM: MRI of the LEFT SHOULDER, without contrast CLINICAL HISTORY: Ongoing left shoulder pain. History of left knee surgery. Suspect rotator cuff tear. Reported fall injury. COMPARISONS: Plain radiographs 10/22/2023. MRI 10/13/2022. TECHNICAL: MRI sequences of the left shoulder: Axials: PD, T2 Coronals: PD, STIR, T2 Sagittals: PD, T2 SEDATION: None CONTRAST: None FINDINGS: Bones: No fracture or suspicious bone marrow signal abnormality. Coracoacromial arch: Acromion: No os acromiale. Surgical changes status post acromioplasty. Acromiohumeral space: The bony distance measures 4-5 mm. Acromioclavicular joint: Surgical changes status post distal clavicular resection. Coracoclavicular ligament: The coracoclavicular ligament is intact. Rotator cuff muscles/tendons: Supraspinatus and infraspinatus: There are surgical changes status post rotator cuff repair. 2.0 cm in AP dimension recurrent full-thickness tear of the supraspinatus tendon with tendon retraction to the level of the glenoid. Moderate atrophy of the supraspinatus muscle and marked atrophy of the infraspinatus muscle, substantially increased compared to previous MRI 10/13/2022. Superior subluxation of the humeral head. Teres minor: The teres minor tendon and muscle are intact. Subscapularis: Surgical changes status post rotator cuff repair. Ill-definition and attenuation of the subscapularis tendon are findings consistent with chronic ill-defined tearing without evidence of discrete acute fluid intense recurrent subscapularis tendon tear. Moderate atrophy of the subscapularis muscle, slightly increased compared to previous MRI 10/13/2022. Labrum and glenohumeral joint: Not well evaluated because of nonarthrogram technique and marked motion artifact. Physiologic amount of joint fluid. The cartilage is not well evaluated because of nonarthrogram technique and marked motion artifact. No convincing evidence of capsular edema or thickening although evaluation is suboptimal because of lack of joint distention. Proximal biceps tendon, long head and short heads: Chronic complete disruption of the proximal long head of the biceps tendon with distal tendon retraction distal to the bicipital groove, also present on previous MRI 10/13/2022. The short head is intact. IMPRESSION: 1. Surgical changes status post rotator cuff repair, acromioplasty, and distal clavicular resection; correlate with surgical history. 2. 2.0 cm in AP dimension recurrent full-thickness tear of the supraspinatus tendon with tendon retraction to the level of the glenoid. Moderate atrophy of the supraspinatus muscle and marked atrophy of the infraspinatus muscle, substantially increased compared to previous MRI 10/13/2022. Associated superior subluxation of the humeral head. 3. Ill-definition and attenuation of the subscapularis tendon are findings consistent with chronic ill-defined tearing without evidence of discrete acute fluid intense recurrent subscapularis tendon tear. Moderate atrophy of the subscapularis muscle, slightly increased compared to previous MRI 10/13/2022. 4. Chronic complete disruption of the proximal long head with distal tendon retraction distal to the bicipital groove, also present on previous MRI 10/13/2022. RCB Electronically signed on 10/29/2023 11:03:00 AM by Solomon Wakefield M.D.
== END 2023-10-29 08:36 | disposition home or self-care (01) ==
LOC: MRI 08:36
PROVIDERS: PCP Family Medicine; Visit Provider Orthopaedic Surgery Sports Medicine
DX: M25.512 Pain in left shoulder (principal); M75.102 Unspecified rotator cuff tear or rupture of left shoulder, not specified as traumatic; M75.122 Complete rotator cuff tear or rupture of left shoulder, not specified as traumatic; S46.912A Strain of unspecified muscle, fascia and tendon at shoulder and upper arm level, left arm, initial encounter; Z98.890 Other specified postprocedural states
CPT/HCPCS: 73221

== ENCOUNTER 2024-06-12 14:21 | Outpatient (CLI) | payer MEDICARE, BC, SELFPAY ==
--- OUTSIDE RECORDS SUMMARY | 2024-06-12 14:23 | XMS_ITS | Clinical Summary ---
Author Organization [facility] Address [address] [place] [address] Care Team Providers Care Grocery Department Manager Name Role Phone Elsewhere, Pcp Primary Care Provider Unavailabl e Source Comments Patient records contain information from all sites at [facility]. For routine questions regarding patient records, call [phone] during business hours, M-F 8:00 AM - 5:00 PM Central Time. Record requests for emergency care only can be directed to [phone] at any time.[facility] Allergies Active Allergy Reactions Criticality Noted Date Comments Penicillins Rash 06/30/2023 Medications losartan (COZAAR) 50 mg tablet Take 50 mg by mouth daily. Active albuterol 90 mcg/actuation inhaler Inhale 2 puffs every 6 (six) hours as needed for wheezing. Active fluticasone propionate (FLONASE) 50 mcg/actuation nasal spray Administer 1 spray into each nostril 2 (two) times a day. Active glucosamine-cho ndroitin (Osteo Bi-Flex) 250-200 mg tablet Take 1 tablet by mouth 2 (two) times a day. Active multivitamin capsule Take 1 capsule by mouth daily. Active rosuvastatin (CRESTOR) 20 mg tablet Take 20 mg by mouth daily. Active sildenafiL (VIAGRA) 50 mg tablet Take 50 mg by mouth daily as needed for erectile dysfunction. Active Immunizations Name Administration Dates Next Due PCV7 (discontinued) 05/23/2001 PPSV23 05/23/2001 Td (Adult), adsorbed 09/04/2009 Family History Medical History Relation Name Comments Diabetes Father Relation Name Status Comments Father Social History Tobacco Use Types Packs/Day Years Used Date Smoking Tobacco: Never Smokeless Tobacco: Never Alcohol Use Standard Drinks/Week Comments Yes 2 (1 standard drink = 0.6 oz pur e alcohol) Nutrition Answer Date Recorded Nutrition: EVOO Fat Source Unknown 12/17 Nutrition: Servings of Fruits/Vegetables per Day Not on file 12/17/2021 Dental Answer Date Recorded Dental: Regular Dentist Unknown 12/18/19 Sex and Gender Information Value Date Recorded Sex Assigned at Not on file Legal Sex Male 10:24 PM CORRECTIONAL SUPERVISOR LIEUTENANT Gender Identity Not on file Sexual Orientation Not on file Last Filed Vital Signs Vital Sign Reading Time Taken Comments Blood Pressure 160/83 07/15/2023 3:09 PM CORRECTIONAL SUPERVISOR LIEUTENANT Pulse 56 07/15/2023 3:11 PM CORRECTIONAL SUPERVISOR LIEUTENANT Temperature 36.4 ??C (97.5 ??F) 07/15/2023 3:19 PM CS T Respiratory Rate 12 07/01/2023 1:10 PM CORRECTIONAL SUPERVISOR LIEUTENANT Oxygen Saturation 99% 07/15/2023 3:11 PM CORRECTIONAL SUPERVISOR LIEUTENANT Inhaled Oxygen Concentration - - Weight 93.6 kg (206 lb 5.6 oz) 07/15/2023 2:13 P M CORRECTIONAL SUPERVISOR LIEUTENANT Height 180.3 cm (5' 11) 07/15/2023 2:13 PM CORRECTIONAL SUPERVISOR LIEUTENANT Body Mass Index 28.78 07/15/2023 2:13 PM CORRECTIONAL SUPERVISOR LIEUTENANT Plan of Treatment Health Maintenance Due Date Last Done Comments Zoster Vaccines (1 of 2) 1992 DTaP,Tdap,and Td Vaccines (1 - Tdap) 09/05/2009 09/04/2009 RSV vaccine - (32-3 6 weeks) or 60+ years (1 - 1-dose 75+ series) 2017 Pneumococcal vaccine (65+ ye ars) (3 of 3 - PPSV23 or PCV20) 01/13/2021 01/14/2016, 05/23/2001, 05/23/2001 Depression Screening (Annual PHQ-2) 08/16/2023 Fall Risk Screen (Annual) 08/16/2023 Creatinine Level (Kidney Fun ction Test) 11/05/2023 11/04/2022, 03/18/2022, 01/22/2022, Additional history exists Potassium Level 11/05/2023 11/04/2022, 08/0 10/2021, 01/22/2022, Additional history exists Sodium Level 11/05/2023 11/04/2022, 08/0 10/2021, 01/22/2022, Additional history exists COVID-19 Vaccine (2023-2 5 season) 2024 08/29/2021, 10/24/2020, 10/03/2020 Influenza Vaccine (#1) 2024 Medical Devices Implanted Type Area Molding Utility Worker Device Identifier Shelf Expiration Date Model / Serial / Lot Lens Asphrc Cc60wf +17.0d - [id number] - [id number] Implanted:Qty : 1 on 07/01/2023 by Peyman Padilla M.D. at [facility] Ocular Lens Right: Eye [employer] 11/08/2026 CC60WF.170 / [id number] / Lens Asphrc Cc60wf +17.0d - [id number] - [id number] Implanted:Qty : 1 on 07/15/2023 by Peyman Padilla M.D. at [facility] Ocular Lens Left: Eye [employer] 11/08/2026 CC60WF.170 / [id number] / Procedures Procedure Name Priority Date/Time Associated Diagnosis Comments COMPREHENSIVE METABOLIC PANEL, S/P Routine 08/08/2013 9:26 AM CORRECTIONAL SUPERVISOR LIEUTENANT from Last 3 Months or Most Recently Relevant to Health Maintenance Results * CMP (Comprehensive Metabolic Panel) (08/08/2013 9:26 AM CORRECTIONAL SUPERVISOR LIEUTENANT) BUN (Blood Urea Nitrogen), S 17 7 - 23 MGDL POWERCHART Creatinine 1.0 0.9 - 1.4 MGDL POWERCHART Potassium, S 4.4 3.5 - 4.8 MMOLL POWERCHART Sodium, S 142 135 - 145 MMOLL POWERCHART Chloride, S 103 100 - 108 MMOLL POWERCHART CO2 Total 28 22 - 30 MMOLL POWERCHART Calcium, Total, S 10.0 8.5 - 10.5 MGDL POWERCHART Albumin, S 4.2 3.5 - 5.0 GMDL POWERCHART Alkaline Phosphatase, S 111 45 - 115 UNITL POWERCHART Aspartate Aminotransferase (AST), S 30 8 - 48 UNITL POWERCHART Alanine Amniotransferase, LD 30 21 - 72 UNITL POWERCHART Bilirubin, Total, S 0.7 0.1 - 1.0 MGDL POWERCHART Total Protein, S 7.5 6.3 - 8.2 MGDL POWERCHART Glucose, Fasting, S 91 70 - 99 MGDL POWERCHART HXeGFR (MDRD) >60 MLMIN POWERCHART eGFR Black/ >60 MLMIN POWERCHART Blood 08/08/2013 9:26 AM CORRECTIONAL SUPERVISOR LIEUTENANT Solo Chambers M.D. LAB BLOOD ADD-ON Final Resul t POWERCHART from Last 3 Months or Most Recently Relevant to Health Maintenance Insurance MEDICARE [facility] Advance Directives For more information, please contact: [phone] * Full Code (Latest Code Status on File) Date Activated Date Inactivated Comments 07/01/2023 12:07 PM 07/01/2023 3:32 PM Question Answer Comments Full Code: Discussed Care Teams Grocery Department Manager Relationship Specialty Start Date End Date Elsewhere, Pcp PCP - General Family Medicine 10/06/17
--- OUTSIDE RECORDS SUMMARY | 2024-06-12 14:24 | XMS_ITS | Clinical Summary ---
Author Organization [facility] Address [place], [place] [address] Care Team Providers Care Web Design Instructor Name Role Phone Christopher Sandoval MD Primary Care Provider Allergies Active Allergy Reactions Criticality Noted Date Comments Penicillins Rash 09/04/2014 Medications Medication Sig Dispensed Refills Start Date End Date Status Glucosamine-Chondroi tin (OSTEO BI-FLEX) 250-200 mg tablet Take 1 tablet by mouth 2 times daily. 2 tablet 0 09/04/2014 Active multivitamin (MVI) tablet Take 1 tablet by mouth once daily. 1 tablet 0 09/04/2014 Active fluticasone (50 mcg per actuation) nasal solution (FLONASE)Indications :Hayfever Inhale 1 [place] into both nostrils 2 times daily. 1 Bottle 12 05/20/2015 Active losartan (COZAAR) 50 mg tabletIndications:HT N (hypertension) Take 1 Tablet (50 mg) by mouth once daily. 90 Tablet 3 06/28/2023 Active calcium carbonate (CALTRATE) 600 mg calcium (1,500 mg) tabletIndications:Cl osed compression fracture of L3 lumbar vertebra with routine healing, subsequent encounter Take 1 Tablet (600 mg) by mouth two times daily with meals. 180 Tablet 3 02/03/2024 Active cholecalciferol (Vitamin D) 1,000 unit capsuleIndications:C losed compression fracture of L3 lumbar vertebra with routine healing, subsequent encounter Take 1 Capsule (1,000 units) by mouth once daily. 90 Capsule 3 02/03/2024 Active Active Problems Problem Noted Date Diagnosed Date BPPV (benign paroxysmal positional vertigo) Encounters Date Type Department Care Team Description 06/07/2024 Transcribe Orders [facility] [address] [place] [address] Robert Lin MD from Last 3 Months Immunizations Name Administration Dates Next Due COVID-19 vaccine ([employer]-Bio NTech 30mcg/0.3mL) PF, MDV 08/29/2021,10/24/2020,10/03/2020 Pneumococcal Poly,23-Valent (Pneumovax) 05/23/20 01 Pneumococcal conj 13-Valent (Prevnar 13) 016 Td (Age >=7 Years) 09/04/2009 Td, Preservative Free (age >= 7 Years) 0 Social History Tobacco Use Types Packs/Day Years Used Date Smoking Tobacco: Former Smokeless Tobacco: Never Alcohol Use Standard Drinks/Week Comments Yes 7 (1 standard drink = 0.6 oz pur e alcohol) PHQ-2 Answer Date Recorded PHQ-2 Score 0 10/18/2018 Social Connections Answer Date Recorded Do you often feel lonely or isolated from those around you? 0 12/31/2023 Financial Resource Strain Answer Date R ecorded Difficulty of Paying Living Expenses 3 12/31/2023 Difficulty of Paying Living Expenses Not on file 12/31/2023 Food Insecurity Answer Date Recorded Do you worry your food will run out before you are able to buy more? 1 12/31/2023 Transportation Needs Answer Date Record ed Does lack of transportation keep you from medica l appointments? 1 12/31/2023 Does lack of transportation keep you from work, meetings or getting things that you need? 1 12/31/2023 Housing Stability Answer Date Recorded What is your housing situation today? 1 12/31/2023 Sex and Gender Information Value Date Recorded Sex Assigned at Not on file Gender Identity Not on file Sexual Orientation Not on file Obstetrics History Last Filed Vital Signs Vital Sign Reading Time Taken Comments Blood Pressure 150/81 02/03/2024 10:18 AM CDT Pulse 61 02/03/2024 10:18 AM CDT Temperature 36.9 ??C (98.5 ??F) 06/28/2023 10:[address] Respiratory Rate 20 06/28/2023 10:53 AM LABORER AIRPORT MAINTENANCE Oxygen Saturation 96% 01/07/2024 10:18 AM CDT Inhaled Oxygen Concentration - - Weight 94.8 kg (209 lb) 02/03/2024 10:18 AM CDT Height 172.7 cm (5' 8) 06/28/2023 10:53 AM LABORER AIRPORT MAINTENANCE Body Mass Index 31.78 06/28/2023 10:53 AM LABORER AIRPORT MAINTENANCE Plan of Treatment Upcoming Encounters Date Type Department Care Team (Late st Contact Info) Description 06/29/2024 11:20 AM LABORER AIRPORT MAINTENANCE Office Visit [facility] [address] [place] [address] Christopher Sandoval MD [address] [place] [address] 07/26/2024 11:45 AM LABORER AIRPORT MAINTENANCE Appointment [facility] [address] [place] [address] Esau Hagan, PT [address] [place] [address] 08/02/2024 11:45 AM LABORER AIRPORT MAINTENANCE Appointment [facility] [address] [place] [address] Esau Hagan, PT [address] [place] [address] 08/08/2024 9:30 AM LABORER AIRPORT MAINTENANCE Appointment [facility] [address] [place] [address] Esau Hagan, PT [address] [place] [address] Health Maintenance Due Date Last Done Comments Tdap 1951 Zoster (shingles) series for age 50+ (1 of 2) 1992 Medicare Wellness for age 65+ 11/19/2007 RSV vaccine for adults or (1 - 1-dose 75+ series) 2017 Depression screening for age 12+ 05/03/2019 05/03/2018, 03/22/2018, 02/23/2018, Additional history exists Tetanus booster 09/04/2019 09/04/2009, 09/04/2009 Pneumococcal series for age 65+ (3 of 3 - PPSV23 or PCV20) 01/13/2021 01/14/2016, 05/23/2001 COVID-19 vaccine series (4 - 2023- season) 2024 08/29/2021, 10/24/2020, 10/03/2020 Influenza for age 65+ 04/16/2024 BMI (ht and wt on same day) for age 18+ 06/28/2024 06/28/2023, 11/04/2022, 06/23/2022, Additional history exists Insurance Payer Benefit Plan / Group Subscriber ID Effective Dates Phone Address Type MEDICARE PART A - HB USE ONLY MEDICARE PART A HB ONLY [id number] 2007-Presen t ATTN: CLAIMS [address] [place] [address] MEDICARE PART B - HB USE ONLY MEDICARE PART B HB ONLY [id number] 2007-Presen t ATTN: CLAIMS [address] [place] [address] MEDICARE PART B - HB USE ONLY MEDICARE PART B HB ONLY [id number] 2007-Presen t ATTN: CLAIMS [address] [place] [address] MEDICARE PART A - HB USE ONLY MEDICARE PART A HB ONLY [id number] 2007-Presen t ATTN: CLAIMS [address] [place] [address] BLUE CROSS BLUE CROSS [facility] [id number] 2014-Presen t [address] [place] [address] BLUE CROSS [place]OSS [place] HB ONLY [id number] 2016-Presen t [address] [address] [place] [address] BLUE CROSS MR BLUE CROSS [place] BLUE MR PB ONLY [id number] 2016-Presen t [address] [address] [place] [address] Care Teams Web Design Instructor Relationship Specialty Start Date End Date Christopher Sandoval MD [address] [place] [address] PCP - General Family Practice 08/31/14
--- OUTSIDE RECORDS SUMMARY | 2024-06-12 14:24 | XMS_ITS | Referral Summary ---
Author Organization [facility] Address [address] [place] [address] Care Team Providers Care Criminal Intelligence Analyst Name Role Phone Elsewhere, Pcp Primary Care Provider Unavailabl e Source Comments Patient records contain information from all sites at [facility]. For routine questions regarding patient records, call [phone] during business hours, M-F 8:00 AM - 5:00 PM Central Time. Record requests for emergency care only can be directed to [phone] at any time.[facility] Allergies Active Allergy Reactions Criticality Noted Date [...] 05/23/2001 PPSV23 05/23/2001 Td (Adult), adsorbed 09/04/2009 Social History Tobacco Use Types Packs/Day Years [...] on file Legal Sex Male 10:24 PM PAPER RECLAIMING MACHINE OPERATOR Gender Identity Not on file Sexual Orientation Not on file Last Filed Vital Signs Vital Sign Reading Time Taken Comments Blood Pressure 160/83 07/15/2023 3:09 PM PAPER RECLAIMING MACHINE OPERATOR Pulse 56 07/15/2023 3:11 PM PAPER RECLAIMING MACHINE OPERATOR Temperature 36.4 ??C (97.5 ??F) 07/15/2023 3:19 PM CS T Respiratory Rate 12 07/01/2023 1:10 PM PAPER RECLAIMING MACHINE OPERATOR Oxygen Saturation 99% 07/15/2023 3:11 PM PAPER RECLAIMING MACHINE OPERATOR Inhaled Oxygen Concentration - - Weight 93.6 kg (206 lb 5.6 oz) 07/15/2023 2:13 P M PAPER RECLAIMING MACHINE OPERATOR Height 180.3 cm (5' 11) 07/15/2023 2:13 PM PAPER RECLAIMING MACHINE OPERATOR Body Mass Index 28.78 07/15/2023 2:13 PM PAPER RECLAIMING MACHINE OPERATOR Plan of Treatment Not on file Medical Devices Implanted Type Area Stewardess Supervisor Device Identifier Shelf Expiration Date Model / Serial / Lot Lens Asphrc Cc60wf +17.0d - [id number] - [id number] Implanted:Qty : 1 on 07/01/2023 by Peyman Padilla M.D. at [facility] Ocular Lens Right: Eye [employer] 11/08/2026 CC60WF.170 / [id number] / Lens Asphrc Cc60wf +17.0d - [id number] - [id number] Implanted:Qty : 1 on 07/15/2023 by Peyman Padilla M.D. at [facility] Ocular Lens Left: Eye [employer] 11/08/2026 CC60WF.170 / [id number] / Procedures Procedure Name Priority Date/Time Associated Diagnosis Comments COMPREHENSIVE METABOLIC PANEL, S/P Routine 08/08/2013 9:26 AM PAPER RECLAIMING MACHINE OPERATOR from Last 3 Months or Most Recently Relevant to Health Maintenance Results * CMP (Comprehensive Metabolic Panel) (08/08/2013 9:26 AM PAPER RECLAIMING MACHINE OPERATOR) BUN (Blood Urea Nitrogen), S 17 7 [...] >60 MLMIN POWERCHART Blood 08/08/2013 9:26 AM PAPER RECLAIMING MACHINE OPERATOR us Solo Chambers M.D. LAB BLOOD ADD-ON Final Resul t POWERCHART from Last 3 Months or Most Recently Relevant to Health Maintenance Insurance MEDICARE [facility] Member Subscriber Plan / Payer (Ef fective 2016-Present) Name:Martinez Arango Relation to Subscriber:Self Name:Martinez Arango Payer ID:Not on file Type:Cost Share Address: [place] [id number] Advance Directives For more information, please contact: [phone] * Full Code (Latest Code Status on File) Date Activated Date Inactivated Comments 07/01/2023 12:07 PM 07/01/2023 3:32 PM Question Answer Comments Full Code: Discussed Care Teams Criminal Intelligence Analyst Relationship Specialty Start Date End Date Elsewhere, Pcp PCP - General Family Medicine 10/06/17
--- OUTSIDE RECORDS SUMMARY | 2024-06-12 14:24 | XMS_ITS ---
Author Organization [facility] Address [address] [place] [address] Care Team Providers Care Hob Mill Operator Name Role Phone Unavailable Unavailable Unavailable Surgery Details Not on file Complications Check Surgery Details section. Procedure Estimated Blood Loss Check Surgery Details section. Procedure Findings Check Surgery Details section. Procedure Specimens Taken Check Surgery Details section.
== END 2024-06-12 14:22 | disposition home or self-care (01) ==
LOC: CT 14:22
PROVIDERS: PCP Family Medicine; Visit Provider Orthopaedic Surgery Sports Medicine
DX: M19.012 Primary osteoarthritis, left shoulder (principal); Z01.818 Encounter for other preprocedural examination
CPT/HCPCS: 73200

== ENCOUNTER 2024-07-04 08:36 | Outpatient (RCR) | payer MEDICARE, BC, SELFPAY ==
--- NOTE | 2024-07-04 14:32 | OT.OPOE ---
OT Outpatient Ortho Eval OT Outpatient Ortho Eval* Start: 07/04/24 11:18 Freq: Status: Active Protocol: Document 07/04/24 11:41 JLS (Rec: 07/04/24 14:23 JLS [id number]) E-signed By Vivien Hester, OTR/L, CLT OT OP Ortho Eval Details Complexity Complexity Low Insurance Information Insurance Information Blue Cross/Blue Shield, Medicare B Outpatient History/Precautions Current Condition/Medical Diagnosis Referring Provider Delia Medical Diagnoses M19.012 primary osteoarthritis , left shoulder Treatment Diagnosis M25.512 Pain in left shoulder Medical Conditions Metal Implants Medical/Functional History Medical History Reviewed Yes Prior Level of Function/Mobility Pt is I with all ADL/IADLs, but has been very limited by high levels of pain, 10 pain reported at time of eval and needing assist because of this. MMT 12/18, ROM flex/abd to 80 degs. 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 Pain Assessment Pain Pain Yes Pain Comments 05/25, OTC pain meds only last 3 hrs, walks with his hand on his neck to reduce the pain. OT Problems Problems Problems Decreased Strength,Decreased Range of Motion,Decreased Dexterity,Pain,Decreased Coordination,Sensory Sensitivity,Lifting,Gripping, Pinching,Other Other Problems Writing,Opening Containers, Dressing,Computer,Fasteners, Sleeping Patient Potential Excellent Assessment Assessment Assessment Pt is a 83 yr old male referred to outpatient occupational therapy for a Lt TSA pre-op. Pt is R hand dominant. Surgery is scheduled for 07/12/24. Pt will have assist from spouse, lives in a multistory home. Pt was educated on post op exercises, post surgical precautions, as well as hospital progression prior to DC. Pt was also educated on sleeping and positioning, one handed ADL techniques, DME recommendations, fall prevention, icing/polar care, and sling management. All questions were answered to Pt? s satisfaction. Occupational Therapy Treatment Plan - OP Potential Rehabilitation Potential Excellent Set Goals Goals Set with Patient Yes Goals Goals Within one visit the patient will.... 1. be educated on sling management, one handed ADL techniques. GOAL MET 2. be able to verbalize and demonstrate post op exercises. GOAL MET Treatment Plan Treatment Plan Evaluation,Self Care/Home Management,Education Expected Frequency Comments one time OT eval and tx Certification Certification Statement I Certify That: Therapy Services Provided, Therapy Plan Established, Therapy Plan Reviewed Certification Information Clinic ID # [id number] Initial Certification Date 07/04/24 Recertification Due Date 10/02/24 Provider Signature Required Yes Provider Signature Shows Agreement With POC & Medical Necessity Physician NPI Number Write NPI# Here Physician Comment/Change Comment or Changes Physician Signature & Date Requested Please Sign/Date Here
== END 2024-11-01 23:59 | disposition home or self-care (01) ==
PROVIDERS: PCP Family Medicine; Visit Provider Orthopaedic Surgery Sports Medicine
DX: M19.012 Primary osteoarthritis, left shoulder (principal); Z96.612 Presence of left artificial shoulder joint; M25.512 Pain in left shoulder; Z51.89 Encounter for other specified aftercare
CPT/HCPCS: 97165

== ENCOUNTER 2024-07-13 20:46 | Inpatient (IN) | payer MEDICARE, BC, SELFPAY ==
[2024-07-12] VITALS (25 sets, daily range): BP systolic 111–162; BP diastolic 78–101; PULSE 69–98; RESP 13–22; TEMP 36.1–36.9; O2SAT 90–97; BMI 31.0
--- OUTSIDE RECORDS SUMMARY | 2024-07-12 06:08 | XMS_ITS | Referral Summary ---
Author Organization [facility] Address [address] [place] [address] Care Team Providers Care Mri Specialist Name Role Phone Elsewhere, Pcp Primary Care Provider Unavailabl e Source Comments Patient records contain information from all sites at [facility]. For routine questions regarding patient records, call [phone] during business hours, M-F 8:00 AM - 5:00 PM Central Time. Record requests for emergency care only can be directed to [phone] at any time.[facility] Allergies Active Allergy Reactions Criticality Noted Date [...] on file Legal Sex Male 10:24 PM PEST CONTROL SERVICE SALES AGENT Gender Identity Not on file Sexual Orientation Not on file Last Filed Vital Signs Vital Sign Reading Time Taken Comments Blood Pressure 160/83 07/15/2023 3:09 PM PEST CONTROL SERVICE SALES AGENT Pulse 56 07/15/2023 3:11 PM PEST CONTROL SERVICE SALES AGENT Temperature 36.4 C (97.5 F) 07/15/2023 3:19 PM PEST CONTROL SERVICE SALES AGENT Respiratory Rate 12 07/01/2023 1:10 PM PEST CONTROL SERVICE SALES AGENT Oxygen Saturation 99% 07/15/2023 3:11 PM PEST CONTROL SERVICE SALES AGENT Inhaled Oxygen Concentration - - Weight 93.6 kg (206 lb 5.6 oz) 07/15/2023 2:13 P M PEST CONTROL SERVICE SALES AGENT Height 180.3 cm (5' 11) 07/15/2023 2:13 PM PEST CONTROL SERVICE SALES AGENT Body Mass Index 28.78 07/15/2023 2:13 PM PEST CONTROL SERVICE SALES AGENT Plan of Treatment Not on file Medical Devices Implanted Type Area Goldbeater Device Identifier Shelf Expiration Date Model / Serial / Lot Lens Asphrc Cc60wf +17.0d - [id number] - [id number] Implanted:Qty : 1 on 07/01/2023 by Peyman Padilla M.D. at [facility] Ocular Lens Right: Eye [employer] 11/08/2026 CC60WF.170 / [id number] / Lens Asphrc Cc60wf +17.0d - [id number] - [id number] Implanted:Qty : 1 on 07/15/2023 by Peyman Padilla M.D. at [facility] Ocular Lens Left: Eye [employer] 11/08/2026 CC60WF.170 / [id number] / Procedures Procedure Name Priority Date/Time Associated Diagnosis Comments COMPREHENSIVE METABOLIC PANEL, S/P Routine 08/08/2013 9:26 AM PEST CONTROL SERVICE SALES AGENT from Last 3 Months or Most Recently Relevant to Health Maintenance Results * CMP (Comprehensive Metabolic Panel) (08/08/2013 9:26 AM PEST CONTROL SERVICE SALES AGENT) BUN (Blood Urea Nitrogen), S 17 7 [...] >60 MLMIN POWERCHART Blood 08/08/2013 9:26 AM PEST CONTROL SERVICE SALES AGENT us Solo Chambers M.D. LAB BLOOD ADD-ON Final Resul t POWERCHART from Last 3 Months or Most Recently Relevant to Health Maintenance Insurance MEDICARE [facility] Advance Directives For more information, please contact: [phone] * Full Code (Latest Code Status on File) Date Activated Date Inactivated Comments 07/01/2023 12:07 PM 07/01/2023 3:32 PM Question Answer Comments Full Code: Discussed Care Teams Mri Specialist Relationship Specialty Start Date End Date Elsewhere, Pcp PCP - General Family Medicine 10/06/17
--- OUTSIDE RECORDS SUMMARY | 2024-07-12 06:08 | XMS_ITS | Clinical Summary ---
Author Organization [facility] Address [address] [place] [address] Care Team Providers Care Bb Shot Packer Name Role Phone Elsewhere, Pcp Primary Care Provider Unavailabl e Source Comments Patient records contain information from all sites at [facility]. For routine questions regarding patient records, call [phone] during business hours, M-F 8:00 AM - 5:00 PM Central Time. Record requests for emergency care only can be directed to [phone] at any time.[facility] Allergies Active Allergy Reactions Criticality Noted Date [...] on file Legal Sex Male 10:24 PM GRAVITY METER OBSERVER Gender Identity Not on file Sexual Orientation Not on file Last Filed Vital Signs Vital Sign Reading Time Taken Comments Blood Pressure 160/83 07/15/2023 3:09 PM GRAVITY METER OBSERVER Pulse 56 07/15/2023 3:11 PM GRAVITY METER OBSERVER Temperature 36.4 C (97.5 F) 07/15/2023 3:19 PM GRAVITY METER OBSERVER Respiratory Rate 12 07/01/2023 1:10 PM GRAVITY METER OBSERVER Oxygen Saturation 99% 07/15/2023 3:11 PM GRAVITY METER OBSERVER Inhaled Oxygen Concentration - - Weight 93.6 kg (206 lb 5.6 oz) 07/15/2023 2:13 P M GRAVITY METER OBSERVER Height 180.3 cm (5' 11) 07/15/2023 2:13 PM GRAVITY METER OBSERVER Body Mass Index 28.78 07/15/2023 2:13 PM GRAVITY METER OBSERVER Plan of Treatment Health Maintenance Due Date Last Done Comments Zoster Vaccines (1 of 2) 1992 DTaP,Tdap,and Td Vaccines (1 - Tdap) 09/05/2009 09/04/2009 RSV vaccine - (32-36 weeks) or 60+ years (1 - 1-dose 75+ series) 2017 Pneumococcal vaccine (65+ years) (3 of 3 - PPSV23 or PCV20) 01/13/2021 01/14/2016, 05/23/2001, 05/23/2001 Depression Screening (Annual PHQ-2) 08/16/2023 Fall Risk Screen (Annual) 08/16/2023 Creatinine Level (Kidney Function Test) 11/05/2023 11/04/2022, 03/18/2022, 01/22/2022, Additional history exists Potassium Level 11/05/2023 11/04/2022, 08/0 10/2021, 01/22/2022, Additional history exists Sodium Level 11/05/2023 11/04/2022, 08/0 10/2021, 01/22/2022, Additional history exists COVID-19 Vaccine ( season) 2024 08/29/2021, 10/24/2020, 10/03/2020 Influenza Vaccine (#1) 2024 IPV Vaccines Aged Out No longer eligi ble based on patient's age to complete this topic Medical Devices Implanted Type Area Furniture Upholsterer Device Identifier Shelf Expiration Date Model / Serial / Lot Lens Asphrc [id number] +17.0d - [id number] - [id number] Implanted:Qty : 1 on 07/01/2023 by Peyman Padilla M.D. at [facility] Ocular Lens Right: Eye [employer] 11/08/2026 [id number].170 / [id number] / Lens Asphrc Cc60wf +17.0d - [id number] - [id number] Implanted:Qty : 1 on 07/15/2023 by Peyman Padilla M.D. at [facility] Ocular Lens Left: Eye [employer] 11/08/2026 CC60WF.170 / [id number] / Procedures Procedure Name Priority Date/Time Associated Diagnosis Comments COMPREHENSIVE METABOLIC PANEL, S/P Routine 08/08/2013 9:26 AM GRAVITY METER OBSERVER from Last 3 Months or Most Recently Relevant to Health Maintenance Results * CMP (Comprehensive Metabolic Panel) (08/08/2013 9:26 AM GRAVITY METER OBSERVER) BUN (Blood Urea Nitrogen), S 17 7 [...] >60 MLMIN POWERCHART Blood 08/08/2013 9:26 AM GRAVITY METER OBSERVER Solo Chambers M.D. LAB BLOOD ADD-ON Final Resul t POWERCHART from Last 3 Months or Most Recently Relevant to Health Maintenance Insurance MEDICARE [facility] Advance Directives For more information, please contact: [phone] * Full Code (Latest Code Status on File) Date Activated Date Inactivated Comments 07/01/2023 12:07 PM 07/01/2023 3:32 PM Question Answer Comments Full Code: Discussed Care Teams Bb Shot Packer Relationship Specialty Start Date End Date Elsewhere, Pcp PCP - General Family Medicine 10/06/17
--- OUTSIDE RECORDS SUMMARY | 2024-07-12 06:08 | XMS_ITS ---
Author Organization [facility] Address [address] [place] [address] Care Team Providers Care Director Channel Name Role Phone Unavailable Unavailable Unavailable Surgery Details Not on file Complications Check Surgery Details section. Procedure Estimated Blood Loss Check Surgery Details section. Procedure Findings Check Surgery Details section. Procedure Specimens Taken Check Surgery Details section.
--- OUTSIDE RECORDS SUMMARY | 2024-07-12 06:08 | XMS_ITS | Clinical Summary ---
Author Organization [facility] Address [place], [place] [address] Care Team Providers Care Journeyman Glazier Name Role Phone Christopher Sandoval MD Primary Care Provider Allergies Active Allergy Reactions Criticality Noted Date Comments Penicillins Rash 09/04/2014 Medications Medication Sig Dispensed Refills Start Date End Date Status Glucosamine-Chond roitin (OSTEO BI-FLEX) 250-200 mg tablet Take 1 tablet by mouth 2 times daily. 2 tablet 0 09/04/2014 Active multivitamin (MVI) tablet Take 1 tablet by mouth once daily. 1 tablet 0 09/04/2014 Active fluticasone (50 mcg per actuation) nasal solution (FLONASE)Indicati ons:Hayfever Inhale 1 Coleman into both nostrils 2 times daily. 1 Bottle 12 05/20/2015 Active calcium carbonate (CALTRATE) 600 mg calcium (1,500 mg) tabletIndications :Closed compression fracture of L3 lumbar vertebra with routine healing, subsequent encounter Take 1 Tablet (600 mg) by mouth two times daily with meals. 180 Tablet 3 02/03/2024 Active cholecalciferol (Vitamin D) 1,000 unit capsuleIndication s:Closed compression fracture of L3 lumbar vertebra with routine healing, subsequent encounter Take 1 Capsule (1,000 units) by mouth once daily. 90 Capsule 3 02/03/2024 Active losartan (COZAAR) 50 mg tabletIndications :HTN (hypertension) Take 1 Tablet (50 mg) by mouth once daily. 90 Tablet 3 06/29/2024 Active losartan (COZAAR) 50 mg tabletIndications :HTN (hypertension) Take 1 Tablet (50 mg) by mouth once daily. 90 Tablet 3 06/28/2023 06/29/2024 Discontinued (Reorder (E-cancel not sent)) Active Problems Problem Noted Date Diagnosed Date BPPV (benign paroxysmal positional vertigo) Encounters Date Type Department Care Team Description 06/29/2024 11:20 AM QUAHOGGER Office Visit [facility] [address] [place] [address] Christopher Sandoval MD Preoperative Exam (Surgery on 07/12/24 Dr. Klein at [facility] left shoulder ) 06/29/2024 Orders Only [facility] [address] [place] [address] Christopher Sandoval MD 1 scan: (1-Ord) 06/29/2024 06/29/2024 Travel 06/07/2024 Transcribe Orders [facility] [address] [place] [address] Robert Lin MD from Last 3 Months Immunizations Name Administration Dates Next Due COVID-19 vaccine ([employer] 30mcg/0.3mL) PF, MDV 08/29/2021,10/24/2020,10/03/2020 Pneumococcal Poly,23-Valent (Pneumovax) [...] Sign Reading Time Taken Comments Blood Pressure 132/76 06/29/2024 11:23 AM QUAHOGGER Pulse 59 06/29/2024 11:23 AM QUAHOGGER Temperature 36.4 C (97.6 F) 06/29/2024 11:23 AM QUAHOGGER Respiratory Rate 20 06/29/2024 11:23 AM QUAHOGGER Oxygen Saturation 97% 06/29/2024 11:23 AM QUAHOGGER Inhaled Oxygen Concentration - - Weight 92.5 kg (204 lb) 06/29/2024 11:23 AM QUAHOGGER Height 174 cm (5' 8.5) 06/29/2024 11:23 AM QUAHOGGER Body Mass Index 30.57 06/29/2024 11:23 AM QUAHOGGER Plan of Treatment Upcoming Encounters Date Type Department Care Team (Late st Contact Info) Description 07/26/2024 11:45 AM QUAHOGGER Appointment [address] [address] Esau Hagan, PT [address] [place] [address] 07/28/2024 9:30 AM QUAHOGGER Appointment [address] [address] Esau Hagan, PT [address] [place] [address] 08/02/2024 11:45 AM QUAHOGGER Appointment [address] [address] Esau Hagan, PT [address] [place] [address] 08/04/2024 9:30 AM QUAHOGGER Appointment [address] [place] [address] Michelle Jorge V, EDUCATION AND DEVELOPMENT MANAGER [address] [place] [address] 08/08/2024 9:30 AM QUAHOGGER Appointment [facility] [address] [place] [address] Esau Hagan, PT [address] [facility], [place] [id number] 08/10/2024 11:45 AM QUAHOGGER Appointment [address] [place] [address] Michelle Jorge V, EDUCATION AND DEVELOPMENT MANAGER [address] [place] [address] Health Maintenance Due Date Last Done Comments [...] PCV20) 01/13/2021 01/14/2016, 05/23/2001 COVID-19 vaccine series ( season) 2024 08/29/2021, 10/24/2020, 10/03/2020 Influenza for age 65+ 04/16/2024 BMI (ht and wt on same day) for age 18+ 06/29/2025 06/29/2024, 06/28/2023, 11/04/2022, Additional history exists Procedures Procedure Name Priority Date/Time Associated Diagnosis Comments BASIC METABOLIC PANEL Routine 06/29/2024 12:14 PM QUAHOGGER HTN (hypertension) CBC W PLT NO DIFF Routine 06/29/2024 12: 14 PM QUAHOGGER HTN (hypertension) UA W/ SEDIMENT EXAM REFLEXED PER CRITERIA Routine 06/29/2024 12:14 PM QUAHOGGER HTN (hypertension) LIPID PANEL W REFLEX MEASURED LDL Routine 06/29/2024 12:14 PM QUAHOGGER HTN (hypertension) TSH Routine 06/29/2024 12:14 PM QUAHOGGER HTN (hypertension) EKG 12 LEAD Routine 06/29/2024 12:00 AM QUAHOGGER HTN (hypertension) from Last 3 Months Results * (ABNORMAL) LIPID PANEL W REFLEX MEASURED LDL (06/29/2024 12:14 PM QUAHOGGER) Pathologist [facility] CHOLESTEROL, TOTAL 268(H) <200 mg/dL [facility] HDL CHOLESTEROL 49 > OR = 40 mg/dL [facility] TRIGLYCERIDES 160(H) <150 mg/dL [facility] LDL-CHOLESTEROL 188(H) mg/dL (calc) [facility] Comment: Reference range: <100 Desirable range <100 mg/dL for primary prevention; <70 mg/dL for patients with CHD or diabetic patients with > or = 2 CHD risk factors. LDL-C is now calculated using the Ignacio-Grecia calculation, which is a validated novel method providing better accuracy than the Friedewald equation in the estimation of LDL-C. Ignacio HOLCOMB et al. NAIDA. 2013;310(19): 6182-7926 (http://education.MaSpatule.com.[employer]/faq/OEG061) CHOL/HDLC RATIO 5.5(H) <5.0 (calc) [facility] NON HDL CHOLESTEROL 219(H) <130 mg/dL (calc) [facility] Comment: For patients with diabetes plus 1 major ASCVD risk factor, treating to a non-HDL-C goal of <100 mg/dL (LDL-C of <70 mg/dL) is considered a therapeutic option. Blood BLOOD SPECIMEN / Unknown 06/29/2024 12:14 PM QUAHOGGER 06/29/2024 12:15 PM QUAHOGGER Narrative [facility] - 06/30/2024 5:07 AM QUAHOGGER FASTING:YES FASTING: YES Christopher Sandoval MD CHEMISTRY Performing Organization Address [facility]/ZIP Co de Phone Number [facility] [employer] [facility] [address] [place] [address], [place] [phone] [facility] [address] [place] [address] * TSH (06/29/2024 12:14 PM QUAHOGGER) [facility] TSH 0.96 0.40 - 4.50 mIU/L [facility] Blood BLOOD SPECIMEN / Unknown 06/29/2024 12:14 PM QUAHOGGER 06/29/2024 12:15 PM QUAHOGGER Narrative [facility] - 06/30/2024 11:33 AM QUAHOGGER FASTING:YES FASTING: YES Christopher Sandoval MD CHEMISTRY Performing Organization Address [facility] Co de Phone Number [facility] [address] [place] [address], [place] [phone] [facility] [address] [place] [address] * CBC W PLT NO DIFF (06/29/2024 12:14 PM QUAHOGGER) Pathologist [facility] WHITE BLOOD CELL COUNT 8.8 3.8 - 10.8 Thousand/u L [facility] RED BLOOD CELL COUNT 4.67 4.20 - 5.80 Million/uL [facility] HEMOGLOBIN 14.4 13.2 - 17.1 g/dL [facility] HEMATOCRIT 43.6 38.5 - 50.0 % [facility] MCV 93.4 80.0 - 100.0 fL [facility] MCH 30.8 27.0 - 33.0 pg [facility] MCHC 33.0 32.0 - 36.0 g/dL [facility] Comment: For adults, a slight decrease in the calculated MCHC value (in the range of 30 to 32 g/dL) is most likely not clinically significant; however, it should be interpreted with caution in correlation with other red cell parameters and the patient's clinical condition. RDW 12.6 11.0 - 15.0 % [facility] PLATELET COUNT 343 140 - 400 Thousand/u L [facility] MPV 9.0 7.5 - 12.5 fL [facility] Blood BLOOD SPECIMEN / Unknown 06/29/2024 12:14 PM QUAHOGGER 06/29/2024 12:15 PM QUAHOGGER Narrative [facility] - 06/30/2024 3:42 AM QUAHOGGER FASTING:YES FASTING: YES Christopher Sandoval MD HEMATOLOGY [facility] [place] [address] [place] [address], [facility] [address] [place] [address] * UA W/ SEDIMENT EXAM REFLEXED PER CRITERIA (06/29/2024 12:14 PM QUAHOGGER) COLOR YELLOW YELLOW [facility] APPEARANCE CLEAR CLEAR [facility] SPECIFIC GRAVITY 1.016 1.001 - 1.035 [facility] PH < OR = 5.0 5.0 - 8.0 [facility] GLUCOSE NEGATIVE NEGATIVE [facility] BILIRUBIN NEGATIVE NEGATIVE [facility] KETONES NEGATIVE NEGATIVE [facility] OCCULT BLOOD NEGATIVE NEGATIVE [facility] PROTEIN NEGATIVE NEGATIVE [facility] NITRITE NEGATIVE NEGATIVE [facility] LEUKOCYTE ESTERASE NEGATIVE NEGATIVE [facility] Urine URINE SPECIMEN / Unknown 06/29/2024 12:14 PM QUAHOGGER 06/29/2024 12:15 PM QUAHOGGER Narrative [facility] - 06/30/2024 3:53 AM QUAHOGGER FASTING:YES FASTING: YES Christopher Sandoval MD URINE [facility] [address] [place] [address], [place] [phone] [facility] [address] [place] [address] * (ABNORMAL) BASIC METABOLIC PANEL (06/29/2024 12:14 PM QUAHOGGER) Pathologist [facility] GLUCOSE 80 65 - 99 mg/dL [facility] Comment: Fasting reference interval UREA NITROGEN (BUN) 17 7 - 25 mg/dL [facility] CREATININE 1.26(H) 0.70 - 1.22 mg/dL [facility] EGFR 57(L) > OR = 60 mL/min/1.7 3m2 [facility] BUN/CREATININE RATIO 13 6 - 22 (calc) [facility] SODIUM 138 135 - 146 mmol/L [facility] POTASSIUM 4.3 3.5 - 5.3 mmol/L [facility] CHLORIDE 103 98 - 110 mmol/L [facility] CARBON DIOXIDE 25 20 - 32 mmol/L [facility] ELECTROLYTE BALANCE 10 7 - 17 mmol/L (calc) [facility] CALCIUM 9.7 8.6 - 10.3 mg/dL [facility] Blood BLOOD SPECIMEN / Unknown 06/29/2024 12:14 PM QUAHOGGER 06/29/2024 12:15 PM QUAHOGGER Narrative [facility] - 06/30/2024 5:07 AM QUAHOGGER FASTING:YES FASTING: YES Christopher Sandoval MD CHEMISTRY [facility] [address] [place] [address], [place] [phone] [facility] [address] [place] [address] * EKG 12 LEAD (06/29/2024 12:00 AM QUAHOGGER) Christopher Sandoval MD EKG ORD from Last 3 Months Care Teams Journeyman Glazier Relationship Specialty Start Date End Date Christopher Sandoval MD [address] [place], [place] [address], [place] [address] PCP - General Family Practice 08/31/14
[2024-07-12] MEDS: ACETAMINOPHEN 500 MG TABLET 1000 MG PO ×3 (07:00→20:24)
[2024-07-12] MEDS: SODIUM CHLORIDE 0.9 % (FLUSH) 10 ML SYRINGE IVF (07:00)
[2024-07-12] MEDS: OXYCODONE (CR) 10 MG TAB.ER.12H PO (07:00)
[2024-07-12] MEDS: LACTATED RINGERS 1000 ML 1,000 ML 100 ML IV (07:15)
[2024-07-12] MEDS: MIDAZOLAM HCL 1 MG/ML inj IVP (07:16)
[2024-07-12] MEDS: fentaNYL 100 MCG/2 ML inj IVP (07:16)
--- NOTE | 2024-07-12 07:17 | SUR.PREOP ---
TIME?OUT:?0714 PT/RN/MDA?VERIFICATION?OF?SURGICAL?SITE,?PROCEDURE,?AND?CONSENT OBTAINED?PRIOR?TO?INVASIVE?PROCEDURE.
--- NOTE | 2024-07-12 07:23 | W.PM.H&PU ---
History & Physical Update History & Physical Update H&P Reviewed and patient assessed: No changes noted
--- NOTE | 2024-07-12 07:24 | CRLHL7_ITS ---
For Patients: As a result of the Cures Act, medical imaging exams and procedure reports are released immediately into your electronic medical record. You may view this report before your referring provider. If you have questions, please contact your health care provider. Indication: Postop left shoulder Technique: Two views left shoulder Findings/Impression: Hardware from a left total shoulder arthroplasty is in satisfactory position. Bone alignment is normal. No sign of acute fracture. Postop changes are within normal limits. Dictated by Kurt Harmon MD @ 07/12/2024 10:44:12 AM (Electronically Signed)
[2024-07-12] MEDS: CEFAZOLIN 2 GM in 0.9 % SODIUM CHLORIDE Mini-bag 100 ML IVPB ×3 (07:54→22:30)
--- NOTE | 2024-07-12 07:54 | W.PM.NB ---
Nerve Block Nerve Block Time Seen by Provider: 07:17 Date Seen: 07/12/24 Type of block requested by surgeon for post-operative analgesia: supraclavicular Side: left Time out performed: Yes Verification of patient name: Yes Verification of date of : Yes Site marking: site marked Name of person performing procedure: Juancarlos Continuous monitoring Was continuous monitoring of O2 sat, B/P, bus driver/monitor, recorded every 15 minutes?: Yes Procedure Checklist: sterile prep, needles and gloves Ultrasound guided. Images saved: Yes Medications given in 5ml increments after negative aspiration: Ropivicaine %: 0.5 mL: 15 Needle gauge: 22 Precedex (mcg): 25 Patient tolerated procedure well: Yes Block Charges Block Charge (with Pro Fee): Brachial Plexus Use of Ultrasound Machine for Block: Yes- US Guidance/pain block
--- NOTE | 2024-07-12 07:54 | W.ANESCHARGE ---
Anesthesia Charges Start Date/Time Anesthesia Start Date: 07/12/24 Anesthesia Start Time: 07:39 Stop Date/Time Anesthesia Stop Date: 07/12/24 Anesthesia Stop Time: 10:08 Summary Extremes of Age - Over 70 or under 1: MDA
[2024-07-12] MEDS: TRANEXAMIC ACID 100 MG/ML INJ 1000 MG IV (08:00)
--- NOTE | 2024-07-12 09:51 | PM.ORPRC ---
Procedure Note Date of procedure: 07/12/24 Procedure: PREOPERATIVE DIAGNOSIS: 1. Left shoulder osteoarthrosis, primary, severe with poor rotator quality/integrity POSTOPERATIVE DIAGNOSIS: 1. Left shoulder osteoarthrosis,[ primary, severe with poor cuff tissue quality PROCEDURE: 1. Left reverse shoulder arthroplasty. SURGEON: Robert Lin MD. PEDIATRIC SOCIAL WORKER: Thee Segovia PA-C - Of note, a skilled orthodontist assistant was critical for this case to aid in patient positioning, tissue retraction, limb manipulation/positioning, retraction for glenoid exposure, which was challenging, awareness and protection of critical structures, and closure. ANESTHESIA: General plus supraclavicular block EBL: 100 ml IMPLANTS: DJ0 surgical Altivate humeral stem size 12 standard shell, short with P2 porous coating vitamin E neutral poly small socket insert RSP glenoid base plate P2 porous coating with 3 perimeter locking screws 32 neutral glenosphere with retaining screw COMPLICATIONS: None evident INDICATIONS: The patient is a pleasant 83-year-old male who underwent left shoulder arthroscopic rotator cuff repair 11/2022. He did appropriately well following the surgery initially. Unfortunately, 6+ months postop he started having increasing pain, weakness, and dysfunction of the left shoulder. He had some radiation of pain to his neck. 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 Given the deformity, the dysfunction, and the pain, and failure of nonoperative management, recommendation was made for surgery. DESCRIPTION OF PROCEDURE: Following a thorough discussion of risks, benefits, and alternatives, consent was obtained and the left shoulder was marked. The patient was brought to the operating room and placed supine on the operating table. Induction of anesthesia was undertaken. 2 g IV Ancef and 1 g tranexamic acid was administered within 1 hr of incision preoperatively. Appropriate time-out was performed identifying proper patient, site, and procedure. The operative extremity was prepped and draped in the appropriate sterile fashion using ChloraPrep after the patient was positioned in the lazy beach chair position with head in neutral alignment and all bony prominences well padded. A longitudinal incision was made for deltopectoral approach. Deltoid was retracted laterally. Cephalic vein was identified and retracted laterally as well. Vein was spared/protected throughout the case. The clavipectoral fascia was identified and divided longitudinally staying lateral to the conjoined tendon / coracoid. The conjoined tendon was protected with a blunt Hohmann. A remnant of the long head of biceps was seen distally within the bicipital groove, but not proximally within the groove as it was consistent with a previous biceps tenotomy. The upper 1 cm of the pectoralis major was also released from its insertion. The rotator cuff was inspected and found to have good integrity with the subscapularis but fair integrity with a supraspinatus], and a decision for a reverse shoulder arthroplasty was confirmed. A subscapularis cuff of tissue was left via tenotomy for later repair with the remaining subscapularis released in a subperiosteal fashion with the Bovie. This was tagged for later repair. The 3 sisters were cauterized. The upper subscapularis was released from the capsule with a curved Santoyo scissors towards the glenoid. The inferior subscapularis was divided from the capsular tissue on its caudal surface with particular caution for the axillary nerve. This was palpated anterior to the subscapularis both prior to and near the finish of the case. Inferior humeral head osteophytes were excised with caution taken throughout the case with regards to the axillary nerve. The humerus was dislocated, and humeral head cut completed. Then a protector plate was applied. We turned our attention to the glenoid. The humerus was retracted posteriorly. The subscap was protected anteriorly and the labrum/long head biceps origin was excised circumferentially. The capsule was released along the anterior and inferior portions of the glenoid cautiously with a Castro elevator being careful not to penetrate deep. The glenoid had appropriate exposure, and was prepared with the cannulated system with a target of approximately 5-10? of inferior tilt and neutral anteversion (patient had 6-7? of retroversion initially). Utilizing the match Point 3D printed guide, the guide pin was placed. The 3D printed jig removed and after placing the guide pin, the tap was placed followed by the glenoid reaming. The real base plate was opened, and inserted, and excellent compression/purchase was achieved with the central screw. Peripheral screws were then drilled, measured, and placed. The glenosphere was then placed consistent with the preoperative plan utilizing the above noted glenosphere. After securing the glenosphere with the locking, torque limited screw, attention was turned back to the humerus. A canal finder was placed followed by various reamers by hand. The real humeral stem was then opened and inserted with excellent metaphyseal fit and stability. Trial poly was placed and the shoulder reduced. Excellent reduction and stability achieved with appropriate tension on the conjoined tendon. At this stage, trial implants were removed, and the real implants inserted and the shoulder reduced. A 3 minute Betadine soak was performed followed by a thorough irrigation with normal saline. Subscapularis was repaired with #1 PDS to the cuff of tissue on the lesser tuberosity. Excellent reapproximation of tissue achieved. Hemostasis was found to be appropriate. The deltopectoral interval was reapproximated with 0 Vicryl, subcutaneous and subcuticular closure was then performed with number 2-0 Vicryl and 4-0 Monocryl, respectively. A skilled orthodontist assistant was critical for this case to aid in patient positioning, tissue retraction, limb manipulation/positioning, retraction for glenoid exposure, which was challenging, awareness and protection of critical structures, and closure. PLAN: 1. Sling at all times for the operative upper extremity. 2. AROM of elbow, forearm, wrist, and digits as tolerated. 3. PT/OT consults for education and assistance. 4. Social consult for discharge planning. 5. 23 hr perioperative antibiotics. 6. Early ambulation, and SCDs for DVT prophylaxis. 7. Admit to the hospital for the above 8. Analgesics p.r.n.
--- NOTE | 2024-07-12 10:12 | W.ANESCHARGE ---
Anesthesia Charges Start Date/Time Anesthesia Start Date: 07/12/24 Anesthesia Start Time: 07:39 Stop Date/Time Anesthesia Stop Date: 07/12/24 Anesthesia Stop Time: 10:08 Summary Extremes of Age - Over 70 or under 1: OCCUPATIONAL PSYCHOLOGIST
--- NOTE | 2024-07-12 10:27 | SUR.PHASEI ---
Patient came to PACU resting comfortably, denies pain or nausea. O2 saturation on room air 91%.
--- NOTE | 2024-07-12 10:34 | SUR.PHASEI ---
Patient comfortable, no pain or nausea, resting and will answer questions when asked. Patient meets anesthesia discharge criteria from PACU
--- NOTE | 2024-07-12 12:20 | PM.IMCN1 ---
Date of Consult Patient: Anahi Patient Consult date: 07/12/24 Requesting Physician: Orthopedics Primary Care Provider: Christopher Sandoval MD Consult Narrative Narrative: Martinez Arango is a 83 year old male admitted to the hospital for left reverse total shoulder arthroplasty. Procedure performed by Dr. Lin. No complications. Dr. Lin requests consultation for management of medical problems. Postoperatively patient reports no concerns. He is not having significant shoulder pain. Nursing staff note that he has been hypoxic requiring 2 L of oxygen to maintain his O2 sats in the low 90s. He is not dyspneic. He has not had recent respiratory illness symptoms though his family reports other family members have been ill with respiratory illnesses. He has no cold symptoms, cough, fever, dyspnea, chest pain. No previous history of lung disease. Remote history of smoking 40 years ago. Remote history of asthma but no longer on treatment. Does have perennial and seasonal allergies. Been feeling well prior to surgery. He preop physical did not identify any significant perioperative concerns. Review of Systems Narrative: Patient reports urinary frequency getting up at least twice at night and frequent urination during the day. This is a longstanding problem. He had a normal preop urinalysis. Two years ago his PSA was 0.92. He has never had any evaluation or treatment for BPH. [facility] Medical History (Updated 07/12/24 @ 12:30 by Jaya Toure MD) BPH w urinary obs/LUTS ?N40.1 - Benign prostatic hyperplasia with lower urinary tract symptoms (ICD-10) ?N13.8 - Other obstructive and reflux uropathy (ICD-10) Hypertension ?I10 - Essential (primary) hypertension (ICD-10) Rupture of left biceps tendon ?S46.212A - Strain of muscle, fascia and tendon of other parts of biceps, left arm, initial encounter (ICD-10) Asthma due to environmental allergies ?J45.909 - Unspecified asthma, uncomplicated (ICD-10) Seasonal allergic rhinitis due to pollen ?J30.1 - Allergic rhinitis due to pollen (ICD-10) Benign paroxysmal positional vertigo ?H81.10 - Benign paroxysmal vertigo, unspecified ear (ICD-10) Arthritis ?M19.90 - Unspecified osteoarthritis, unspecified site (ICD-10) Hyperlipidemia ?E78.5 - Hyperlipidemia, unspecified (ICD-10) Encounter for counseling regarding advance directives (03/19/16) ?Z71.89 - Other specified counseling (ICD-10) Surgical History (Updated 07/12/24 @ 12:29 by Jaya oTure MD) S/p reverse total shoulder arthroplasty ?Z96.619 - Presence of unspecified artificial shoulder joint (ICD-10) S/P arthroscopy of left shoulder (11/23/22) ?Z98.890 - Other specified postprocedural states (ICD-10) S/P left knee arthroscopy (07/20/05) ?Z98.890 - Other specified postprocedural states (ICD-10) Status post excisional debridement (04/15/22) ?Z98.890 - Other specified postprocedural states (ICD-10) 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 Mother No problems noted. Sister High blood pressure Brother Coronary artery disease Brother Stroke Other Myocardial infarction Social History (Updated 07/12/24 @ 12:27 by Jaya Toure MD) Narrative: [place] in [place] old [place] house with his . Full code, doesn't want long-term life support. -werner former smoker 40 years ago Occasionally drinks alcohol, not every day Recently started walking with use of a cane for balance What is your current living situation?: I presently have a place to live In the past 12 months, utilities in danger of being shut off: no In the past 12 mos, have been you worried that your food would run out before you had money to buy more?: never true In the past 12 mos, the food you bought just didn't last and you didn't have money to buy more?: never true Highest level of school completed/degree received: Associate degree: occupational, technical, vocational program Smoking Status: Never smoker Do you use any of these nicotine containing products: None Second hand tobacco smoke exposure: No How often do you have a drink containing alcohol: 2-3 times a week Alcohol type: beer, wine and hard liquor How many standard drinks containing alcohol do you have on a typical day: 1 or 2 How often do you have six or more drinks on one occasion: Never AUDIT-C Alcohol total score: 3 Non-prescribed substance use: denies use Caffeine: Yes Are you now , , , , never or living with a partner: Social isolation score (0-1 are the most socially isolated patients): 1 How often does anyone, including family, friends and others, physically hurt you: never How often does anyone, including family, friends and others, insult or talk down to you: never How often does anyone, including family, friends and others, threaten you with harm: never How often does anyone, including family, friends and others, scream or curse at you: never Do you think of yourself as: straight/heterosexual Gender Identity: male service: No Meds Home Medications and Allergies Home Medications ?Medication ?Instructions ?Recorded ?Confirmed ?Type fluticasone propionate 50 1 spray intranasal BID PRN 03/02/22 07/10/24 History mcg/actuation nasal spray,suspension multivitamin 1 tab PO QDAY 03/02/22 07/10/24 History latanoprost 0.005 % eye drops 1 drp ophthalmic (eye) HS 03/03/22 06/06/24 History vit A 300 mcg-C 200 mg-E 27 1 tab PO QDAY 03/03/22 06/06/24 History mg-lutein 2 mg and minerals tablet (Ocuvite with Lutein) losartan 50 mg tablet 50 mg PO DAILY 06/06/24 07/10/24 History calcium carbonate 600 mg PO BID 07/10/24 07/10/24 History glucosamine-chondroitin 250 mg-200 1 tab PO BID 07/10/24 07/10/24 History mg tablet (Osteo Bi-Flex) Allergies Allergy/AdvReac Type Severity Reaction Status Date / Time Penicillins Allergy Hives Verified 07/06/24 10:17 Exam Narrative: Exam Narrative: He is alert and appears in no distress. He gives his own history. Oropharynx with small airway. Neck is supple out mass or adenopathy. Respirations are clear to auscultation with symmetric breath sounds in both lung hanna. Cardiovascular: S1, S2, regular rate and rhythm. Abdomen: Bowel sounds active. Abdomen is soft without tenderness or mass. Right upper extremity is normal. Left upper extremity has Maikol sling and an ice pack on his left shoulder. He has nearly normal sensation and motion in his fingers with good capillary refill and good pulses. Const: Vital Signs, click to edit/add: Vital Signs - 24 hr 07/12/24 07:13 07/12/24 07:15 07/12/24 07:20 Temperature 98.0 F Pulse Rate 73 73 70 Respiratory Rate 16 16 16 Blood Pressure 162/101 H 162/94 H 137/93 H Pulse Oximetry 95 95 97 Oxygen Delivery Me thod Room Air Nasal Cannula Nasal Cannula Oxygen Flow Rate 3 3 07/12/24 07:25 07/12/24 10:03 07/12/24 10:10 Temperature 97.2 F L Pulse Rate 69 79 81 Respiratory Rate 16 13 13 Blood Pressure 121/79 154/91 H 155/99 H Pulse Oximetry 97 91 93 Oxygen Delivery Me thod Nasal Cannula Room Air Room Air Oxygen Flow Rate 3 07/12/24 10:15 07/12/24 10:20 07/12/24 10:25 Temperature Pulse Rate 84 79 81 Respiratory Rate 19 14 16 Blood Pressure 136/87 145/87 H 147/92 H Pulse Oximetry 91 91 91 Oxygen Delivery Me thod Room Air Room Air Room Air Oxygen Flow Rate 07/12/24 10:30 07/12/24 10:32 07/12/24 10:40 Temperature 97.2 F L 97.0 F L Pulse Rate 83 81 85 Respiratory Rate 16 22 14 Blood Pressure 146/89 H 147/89 H 147/90 H Pulse Oximetry 91 91 91 Oxygen Delivery Me thod Room Air Room Air Oxygen Flow Rate 07/12/24 10:40 07/12/24 10:45 07/12/24 11:00 Temperature 97.3 F L 97.2 F L 97.3 F L Pulse Rate 84 83 81 Respiratory Rate 14 14 14 Blood Pressure 149/95 H 144/94 H 149/95 H Pulse Oximetry 95 90 94 Oxygen Delivery Me thod Room Air Nasal Cannula Oxygen Flow Rate 2 07/12/24 11:15 07/12/24 11:30 07/12/24 12:00 Temperature 97.3 F L Pulse Rate 82 83 84 Respiratory Rate 14 Blood Pressure 150/95 H 151/95 H 149/95 H Pulse Oximetry 94 94 95 Oxygen Delivery Me thod Nasal Cannula Nasal Cannula Nasal Cannula Oxygen Flow Rate 2 2 2 Documenting provider has reviewed patient's vital signs: yes Assessment and Plan Assessment and plan (1) S/p reverse total shoulder arthroplasty: Problem comment: 07/12/2024, Dr. Lin, no complications. Routine postoperative care Status: Acute (2) Hypertension: Problem comment: Resume losartan Status: Acute (3) BPH w urinary obs/LUTS: Problem comment: Will start a trial of tamsulosin. Outpatient follow-up with primary care in 3-4 weeks to reassess. At risk for urinary retention postoperatively Status: Acute (4) Postoperative hypoxia: Problem comment: Hypoxia without dyspnea in otherwise well-appearing male with no known chronic lung disease. Suspect primary problem is sedation from anesthesia. If hypoxia is not resolving further investigation is warranted. May also have undiagnosed sleep apnea. Status: Acute Plan Patient is admitted to the hospital for management of postoperative cares, pain controlled therapy. Also monitoring and managing postoperative hypoxia and chronic medical problems, hypertension and BPH. Anticipate discharge to home with his after assessment by therapy and adequate management of pain Total Time Spent Total Time Spent: 40 minutes spent reviewing records and discussing with patient, and son and other providers ongoing management of above medical problems.
[2024-07-12] MEDS: LACTATED RINGERS 1000 ML 1,000 ML 75 ML IV (14:07)
[2024-07-12] MEDS: OXYCODONE 5 MG TABLET PO ×3 (17:54→23:47)
--- NOTE | 2024-07-12 18:25 | PC.NURSE ---
Pt arrived to floor at 10:40, arousable, following commands though drowsy. Pt vitally stable, though as pt fell asleep, O2 sats dropped to 88, placed on 2 L of O2, pt remained in mid 90s. Pt weaned off o2, sats remaining in mid 90s. Pt pain rated 5-8/10 throughout shift, PRN oxy given, pt stated improvement. Pt advanced to regular diet and is tolerating well. Pt up to the bathroom via SBA, tolerates well. Call light within reach.
[2024-07-12] MEDS: TAMSULOSIN HCL 0.4 MG CAPSULE PO (20:24)
[2024-07-12] MEDS: SENNOSIDES 1 TAB TABLET 2 TAB PO (20:24)
[2024-07-12] MEDS: diphenhydrAMINE 50 MG/ML inj IVP (23:47)
[2024-07-13] VITALS (7 sets, daily range): BP systolic 114–183; BP diastolic 65–97; PULSE 81–100; RESP 16–20; TEMP 36.4–37.3; O2SAT 90–95
[2024-07-13] MEDS: ACETAMINOPHEN 500 MG TABLET 1000 MG PO ×3 (02:45→14:14)
[2024-07-13] MEDS: OXYCODONE 5 MG TABLET PO ×7 (02:45→22:51)
[2024-07-13] MEDS: CEFAZOLIN 2 GM in 0.9 % SODIUM CHLORIDE Mini-bag 100 ML IVPB (05:22)
[2024-07-13] MEDS: HYDROmorphone 0.5 mg/0.5 ml inj IVP (06:07)
[2024-07-13 06:24] LABS: Hematocrit 35.4 % (37.0-53.0); Hemoglobin* 11.9 gm/dL (13.5-17.5); Mean Corpuscular HGB Conc 34 gm/dL (32-36); Mean Corpuscular Hemoglobin 31 pg (26-34); Mean Corpuscular Volume 92 fL (80-100); Platelet Count* 268 K/uL (140-440); Red Blood Count 3.84 m/uL (4.30-5.90); White Blood Count* 12.72 K/uL (4.50-11.00)
[2024-07-13 06:25] LABS: Slide Review Reflex No
--- NOTE | 2024-07-13 06:26 | PC.NURSE ---
End of shift report [id number]: Pleasant and cooperative with cares. Intermittent confusion throughout the night, at 2330 patient was confused as to time and thought it was 1130am and was asking typewriter tester why he was still at the hospital and why he hasn't had any exercise. Assistant Chief Train Dispatcher reoriented patient to time. Patient also confused as to his date of during 0200 medication administration, able to correct date of when typewriter tester asked patient again what his was. Patient not utilizing call light, bed alarm alert x 2 with patient attempting to get out of bed and into bathroom. Educated patient information assurance light and use. At 0515 patient placed call light on requesting tylenol, typewriter tester discussed medication with patient and updated that patient had tylenol at 0230. Pain to left shoulder rated 10/10 at 0515, 10mg oxycodone administered. At 0610 patient reporting pain at 9/10 with no relief from oral pain medication. Assistant Chief Train Dispatcher administered prn hydromorphone for continued pain. Ice packs applied to shoulder and patient tolerated throughout the entire shift. CMS intact to LUE, patient able to wiggle fingers and feeling intact. Transfers and ambulates with SBA with gait belt and cane.
[2024-07-13 06:33] LABS: Potassium* 4.1 mmol/L (3.6-5.1); Sodium* 135 mmol/L (135-149)
[2024-07-13 06:36] LABS: Creatinine* 1.1 mg/dL (0.5-1.5); Est. Creatinine Clearance* 50.95; Estimated Glomerular Filt Rate 67 ml/min
[2024-07-13 06:37] LABS: Blood Urea Nitrogen* 22 mg/dL (7-30)
[2024-07-13] MEDS: hydrOXYzine pamoate 25 MG CAPSULE PO (08:27)
[2024-07-13] MEDS: SENNOSIDES 1 TAB TABLET 2 TAB PO ×2 (08:27→20:10)
--- NOTE | 2024-07-13 08:58 | PM.ORPN ---
Subjective Subjective Time Seen by Provider: 08:15 Date Seen: 07/13/24 Principal diagnosis: Day 1 s/p left reverse shoulder arthroplasty. DOS: 07/12/24; Dr. Lin. Interval history: Nikhil is resting in his recliner. Son, Noel, and , Adri, present during our visit. Nikhil is struggling with pain management. He c/o 50 out of 10 pain and also states that therapy is not going to touch my arm. For pain management, he is taking Oxycodone and Tylenol and frequently icing. His son asks about adding Ibuprofen or another alternative. Overnight, Nikhil had a hypoxic episode with dyspnea. O2 sats dropped to 88. He has been weaned off oxygen and O2 sats currently are mid-90s. He denies: chest pain, SOB, fever, chills. Admits to decreased sensation in his left hand. Patient and his Adri are requesting he stays another night or two. Adri has high anxious related to managing his pain medications at home. Nikhil denies postop bowel movement, but admits to flatulence. Outpatient PT scheduled to begin mid-July. Nikhil is scheduled to f/u with Orthopedics, Thee Segovia PA-C, on 07/21. Ortho Exam Narrative Exam Narrative: Incision/Dressing: Dressing appears clean and dry. No drainage present. Mepilex intact. Left shoulder appears moderately swollen but supple with no obvious erythema, fluctuance or excessive warmth. Ecchymosis present within axilla. Ice is being utilized as needed. CMS: Intact distally with 2+ Radial pulse. Deltoid sensation intact. Sensation confirmed distally, although patient reports tingling and decreased sensation present. Constitutional: Patient is alert and oriented x3. Patient is in no acute distress and converses without labored breathing. Patient is able to make decisions and demonstrates good insight. Patient is pleasant and cooperative. Affect is full range and appropriate for the circumstances. Other: Sling in use. Const Vital Signs, click to edit/add: Vital Signs - 24 hr 07/12/24 10:03 07/12/24 10:10 07/12/24 10:15 Temperature 97.2 F L Pulse Rate 79 81 84 Pulse Rate [Right Pulse Oximeter] Respiratory Rate 13 13 19 Blood Pressure 154/91 H 155/99 H 136/87 Blood Pressure [Right Arm] Pulse Oximetry 91 93 91 Oxygen Delivery Method Room Air Room Air Room Air Oxygen Flow Rate 07/12/24 10:20 07/12/24 10:25 07/12/24 10:30 Temperature 97.2 F L Pulse Rate 79 81 83 Pulse Rate [Right Pulse Oximeter] Respiratory Rate 14 16 16 Blood Pressure 145/87 H 147/92 H 146/89 H Blood Pressure [Right Arm] Pulse Oximetry 91 91 91 Oxygen Delivery Method Room Air Room Air Room Air Oxygen Flow Rate 07/12/24 10:32 07/12/24 10:40 07/12/24 10:40 Temperature 97.0 F L 97.3 F L Pulse Rate 81 85 84 Pulse Rate [Right Pulse Oximeter] Respiratory Rate 22 14 14 Blood Pressure 147/89 H 147/90 H 149/95 H Blood Pressure [Right Arm] Pulse Oximetry 91 91 95 Oxygen Delivery Method Room Air Room Air Oxygen Flow Rate 07/12/24 10:45 07/12/24 11:00 07/12/24 11:15 Temperature 97.2 F L 97.3 F L Pulse Rate 83 81 82 Pulse Rate [Right Pulse Oximeter] Respiratory Rate 14 14 Blood Pressure 144/94 H 149/95 H 150/95 H Blood Pressure [Right Arm] Pulse Oximetry 90 94 94 Oxygen Delivery Method Nasal Cannula Nasal Cannula Oxygen Flow Rate 2 2 07/12/24 11:30 07/12/24 12:00 07/12/24 12:30 Temperature 97.3 F L Pulse Rate 83 84 91 Pulse Rate [Right Pulse Oximeter] Respiratory Rate 14 Blood Pressure 151/95 H 149/95 H 142/96 H Blood Pressure [Right Arm] Pulse Oximetry 94 95 94 Oxygen Delivery Method Nasal Cannula Nasal Cannula Nasal Cannula Oxygen Flow Rate 2 2 2 07/12/24 13:00 07/12/24 14:00 07/12/24 15:00 Temperature 97.6 F Pulse Rate 90 94 96 Pulse Rate [Right Pulse Oximeter] Respiratory Rate 18 Blood Pressure 142/98 H 120/85 137/88 Blood Pressure [Right Arm] Pulse Oximetry 95 92 91 Oxygen Delivery Method Nasal Cannula Room Air Oxygen Flow Rate 2 0 07/12/24 15:00 07/12/24 15:00 07/12/24 16:00 Temperature 98.2 F Pulse Rate 98 Pulse Rate [Right Pulse Oximeter] 98 Respiratory Rate 18 18 18 Blood Pressure 131/86 Blood Pressure [Right Arm] Pulse Oximetry 91 92 Oxygen Delivery Method Room Air Room Air Oxygen Flow Rate 0 07/12/24 16:57 07/12/24 19:00 07/12/24 23:00 Temperature 98.2 F 98.4 F Pulse Rate Pulse Rate [Right Pulse Oximeter] 92 Respiratory Rate 18 18 18 Blood Pressure Blood Pressure [Right Arm] 131/86 111/78 Pulse Oximetry 92 94 94 Oxygen Delivery Method Room Air Room Air Room Air Oxygen Flow Rate 0 0 07/12/24 23:00 07/13/24 03:00 07/13/24 07:55 Temperature 97.8 F 97.5 F L Pulse Rate Pulse Rate [Right Pulse Oximeter] 83 99 Respiratory Rate 18 16 18 Blood Pressure Blood Pressure [Right Arm] 124/79 137/87 Pulse Oximetry 94 92 90 Oxygen Delivery Method Room Air Room Air Room Air Oxygen Flow Rate 07/13/24 07:55 Temperature 98.2 F Pulse Rate Pulse Rate [Right Pulse Oximeter] 81 Respiratory Rate 18 Blood Pressure Blood Pressure [Right Arm] 114/65 Pulse Oximetry 90 Oxygen Delivery Method Room Air Oxygen Flow Rate Assessment and Plan Assessment and plan (1) S/p reverse total shoulder arthroplasty: Problem details: DOS: 07/12/2024, Dr. Lin. Status: Acute Assessment and Plan: Sling use x 6 weeks postoperative. May remove to work on elbow/hand/wrist ROM. I also encouraged pendulum exercises 3-5x/day. For pain management, Oxycodone, Vistaril and acetaminophen PRN in addition to frequent icing. I wrote out a pain schedule for Nikhil. Dressing is waterproof. May shower. Surgical glue covers the wound. Follow-up appointment scheduled for 07/21 with Thee Segovia PA-C. Thee will show x-rays at this visit. Follow-up with Dr. Lin at 6 weeks postoperative. Phone Orthopedics with any questions or concerns. I gave Nikhil and his family our Photo Lab Specialist phone number that they may call over the weekend if they have any questions. [phone].
--- NOTE | 2024-07-13 13:52 | PM.EN ---
Chart Event Note Chart Event Note: Patient noted to have poor balance/possible presyncope during physical therapy. Pain control also suboptimal this morning. We will work on finding a balance between pain management and medication side effects by scheduling Tylenol and limiting oxycodone to reduce iatrogenic dizziness and balance issues, monitor vital signs. Anticipate discharge home tomorrow with family. Reviewed plan of care with Orthopedic surgery team, PT, OT.
--- NOTE | 2024-07-13 17:52 | PC.NURSE ---
Shift Summary -: Patient pleasant and cooperative. Up with one assist, cane and gait belt. C/o pain 10/10 this morning, given 5mg Oxycodone and scheduled acetaminophen this morning prior to PT/OT. Did well working with OT, reported that while working with PT patient almost fell on stairs. Patient impulsive and setting off chair/bed alarm throughout shift, does not use call light, needs to be reminded to call for assistance. Intermittent confusion/forgetful. Needs encouragement to eat, given ensure when patient refused lunch. Rated pain 8/10 but stated it was tolerable and was able to take a nap. Continued ice over left shoulder, dressing dry and intact, CMS intact.
[2024-07-13] MEDS: LOSARTAN POTASSIUM 50 MG TABLET PO (20:09)
[2024-07-13] MEDS: TAMSULOSIN HCL 0.4 MG CAPSULE PO (20:10)
[2024-07-14 01:38] VITALS: BP 138/93; PULSE 101; RESP 18; TEMP 37.1; O2SAT 94
[2024-07-14] MEDS: ACETAMINOPHEN 500 MG TABLET 1000 MG PO ×2 (01:43→08:26)
[2024-07-14 06:25] LABS: Basophils Percent Auto 0.3 % (0.0-3.0); Hematocrit 35.3 % (37.0-53.0); Hemoglobin* 11.8 gm/dL (13.5-17.5); Immature Granulocytes Pct Auto 0.4 %; Lymphocytes Percent Auto 10.9 % (20-44); Mean Corpuscular HGB Conc 33 gm/dL (32-36); Mean Corpuscular Hemoglobin 31 pg (26-34); Mean Corpuscular Volume 92 fL (80-100); Monocytes Percent Auto 16.1 % (0.0-11.0); Neutrophils Percent Auto 72.3 % (42.0-72.0); Platelet Count* 243 K/uL (140-440); Red Blood Count 3.82 m/uL (4.30-5.90); White Blood Count* 11.98 K/uL (4.50-11.00)
[2024-07-14 06:52] LABS: Slide Review Reflex No
[2024-07-14 07:00] VITALS: BP 132/84; PULSE 71; RESP 18; RESP 22; TEMP 36.5; O2SAT 93; O2SAT 94
--- NOTE | 2024-07-14 07:31 | P.ORPN_ITS ---
Subjective Subjective Time Seen by Provider: 07:30 Date Seen: 07/14/24 Principal diagnosis: Day 1 s/p left reverse shoulder arthroplasty. DOS: 07/12/24; Dr. Lin. Interval history: Nikhil appears comfortable resting in his bed this morning, but c/o of pain over 10 out of 10. Nikhil's pain is being managed with frequent icing, 5 mg Oxycodone and 1,000 mg Tylenol PRN. Son and are not present during our visit. Nikhil denies chest pain, SOB, fever, chills, headache, dizziness. Nurse report from yesterday noted some confusion during the day shift. Nikhil and I discussed discontinuing Vistaril this morning. Nikhil denies postop bowel movement, but admits to flatulence. Outpatient PT scheduled to begin mid-July. Nikhil is scheduled to f/u with Orthopedics, Thee Segovia PA-C, on 07/21. Ortho Exam Narrative Exam Narrative: Incision/Dressing: Dressing appears clean and dry. No drainage present. Mepilex intact. Left shoulder appears moderately swollen but supple with no obvious erythema, fluctuance or excessive warmth. Ecchymosis present within axilla. Ice is being utilized as needed. CMS: Intact distally with 2+ Radial pulse. Deltoid sensation intact. Sensation confirmed distally, although patient reports tingling and decreased sensation present. Constitutional: Patient is alert and oriented x3. Patient is in no acute distress and converses without labored breathing. Patient is able to make decisions and demonstrates good insight. Patient is pleasant and cooperative. Affect is full range and appropriate for the circumstances. Other: Sling in use. Const Vital Signs, click to edit/add: Vital Signs - 24 hr 07/13/24 07:55 07/13/24 07:55 07/13/24 14:00 Temperature 98.2 F 98.4 F Pulse Rate [Right Pulse Oximeter] 81 85 Respiratory Rate 18 18 18 Blood Pressure [Right Arm] 114/65 183/97 H Pulse Oximetry 90 90 95 Oxygen Delivery Method Room Air Room Air Room Air Oxygen Flow Rate 07/13/24 15:00 07/13/24 15:48 07/13/24 20:00 Temperature 99.1 F 98.7 F Pulse Rate [Right Pulse Oximeter] 83 100 Respiratory Rate 18 18 20 Blood Pressure [Right Arm] 160/88 H 155/82 H Pulse Oximetry 95 95 91 Oxygen Delivery Method Room Air Room Air Room Air Oxygen Flow Rate 0 07/13/24 20:00 07/13/24 20:00 07/13/24 22:48 Temperature 98.9 F Pulse Rate [Right Pulse Oximeter] 100 97 Respiratory Rate 18 20 20 Blood Pressure [Right Arm] 156/83 H Pulse Oximetry 91 91 Oxygen Delivery Method Room Air Room Air Oxygen Flow Rate 07/14/24 01:38 Temperature 98.8 F Pulse Rate [Right Pulse Oximeter] 101 H Respiratory Rate 18 Blood Pressure [Right Arm] 138/93 H Pulse Oximetry 94 Oxygen Delivery Method Room Air Oxygen Flow Rate Assessment and Plan Assessment and plan (1) S/p reverse total shoulder arthroplasty: Problem details: DOS: 07/12/2024, Dr. Lin. Status: Acute Assessment and Plan: Sling use x 6 weeks postoperative. May remove to work on elbow/hand/wrist ROM. I also encouraged pendulum exercises 3-5x/day. For pain management, Oxycodone and acetaminophen PRN in addition to frequent icing. I wrote out a pain schedule for Nikhil and Adri. I called Nikhil's pharmacy to cancel script for Vistaril that was sent in yesterday. Nikhil's son and are not present during our visit this morning, I will call Noel or Adri later this morning to provide them an Orthopedic update. Dressing is waterproof. May shower. Surgical glue covers the wound. Follow-up appointment scheduled for 07/21 with Thee Segovia PA-C. Thee will show x-rays at this visit. Follow-up with Dr. Lin at 6 weeks postoperative. Phone Orthopedics with any questions or concerns. I gave Nikhil and his family our Fur Blower Operator phone number that they may call over the weekend if they have any questions. [phone].
[2024-07-14] MEDS: SENNOSIDES 1 TAB TABLET 2 TAB PO (10:41)
[2024-07-14] MEDS: OXYCODONE 5 MG TABLET PO (11:04)
--- NOTE | 2024-07-14 13:15 | PC.SOCIAL ---
Discharge plans: Met with family and pt regarding d/c plan. Pt will be staying in his own home with and family to assist as needed. Family requested information on home mission worker care. Provided written information and answered questions on home mission worker care, home delivered meals and [employer]. states their local confucianism provides the meals on wheels and she thinks she will call them and see if they can get those delivered for a few weeks. Son states he will look into hiring home mission worker care if needed. Son is very supportive. Pt, and son have no concerns about discharge home.
--- NOTE | 2024-07-14 15:31 | PC.NURSE ---
shift note: pt up to bathroom. gait unsteady. pain in Lt shoulder 4-05/25. pt medicated with prn medications, ice heather and elevation of Lt arm. fingers to lt hand warm and cap refill intact. IV dc'd intact. Reviewed dc instructions and copies sent with pt at dc. Belongings reviewed and sent with pt at [place]v.
== END 2024-07-14 10:30 | disposition home or self-care (01) | DRG 483 ==
LOC: OR 21:30 → MEDSURG 21:30
PROVIDERS: Family Medicine; Admitting Provider Internal Medicine; PCP Family Medicine; Visit Provider Orthopaedic Surgery Sports Medicine
PROC: 0RRJ0JZ Replacement of Right Shoulder Joint with Synthetic Substitute, Open Approach (ICD-10-PCS; CPT 23472; principal; 2024-07-12 07:45)
DX: M19.012 Primary osteoarthritis, left shoulder (principal); N13.8 Other obstructive and reflux uropathy; M75.102 Unspecified rotator cuff tear or rupture of left shoulder, not specified as traumatic; G89.18 Other acute postprocedural pain; R09.02 Hypoxemia; R26.81 Unsteadiness on feet; R41.0 Disorientation, unspecified; R55 Syncope and collapse; R42 Dizziness and giddiness; N40.1 Benign prostatic hyperplasia with lower urinary tract symptoms; R35.0 Frequency of micturition; E78.5 Hyperlipidemia, unspecified; I10 Essential (primary) hypertension; J45.909 Unspecified asthma, uncomplicated
CPT/HCPCS: 01638; 36415; 64415; 73030; 76942; 82565; 84132; 84295; 84520; 85025; 85027; 97110; 97116; 97161; 97166; 97530; 97535; 99100; A9270; C1713; C1776; J0690; J1100; J1171; J1200; J2250; J2371; J2405; J2704; J2795; J3010; J7120